=== PATIENT | male | born 1990 | race Caucasian/White ===

== ENCOUNTER 2024-01-11 03:56 | Inpatient (IN) | payer MEDICARE, SELFPAY ==
[2024-01-10 23:37] VITALS: BP 147/81
--- NOTE | 2024-01-11 01:45 | EDRN ---
Addendum entered by London Martinez, CHARLES 01/11/24 01:48:
right forearm
Addendum entered by London Martinez, CHARLES 01/11/24 01:48:
right forearm 1
Addendum entered by London Martinez, CHARLES 01/11/24 01:47:
left forearm
Original Note:
left forearm 1
[2024-01-11] MEDS: VANCOCIN 200 IV (02:07)
[2024-01-11 02:08] VITALS: BMI 23.6
[2024-01-11 02:21] LABS: % Basophils 0.4 % (0-2); % Eosinophils 0.5 % (0-6); % Immature Granulocytes 0.3 % (0-0.5); % Monocytes 5.4 % (1.7-9.3); % Neutrophils 70.4 % (42.2-75.2); Absolute Eosinophils 0.1 10^3/uL (0-0.7); Absolute Lymphocytes 2.3 10^3/uL (1.2-3.4); Absolute Monocytes 0.6 10^3/uL (0.1-0.6); Absolute Neutrophils 7.2 10^3/uL (1.4-6.5); Hematocrit 33.3 % (39.0-52.0); Hemoglobin 11.2 g/dL (13.0-18.0); Mean Corp Hgb Conc. 33.6 g/dL (33.0-37.0); Mean Corpuscular Hgb 26.7 pg (27.0-31.0); Mean Corpuscular Volume 79.5 fL (80.0-94.0); Mean Platelet Volume 8.9 fL (7.4-10.4); Nucleated Red Blood Cells % 0 % (-); Platelet Count 453 10^3/uL (130-400); Red Blood Cell Count 4.19 10^6/uL (4.70-6.10); Red Cell Dist. Width 13.8 % (11.5-14.5); White Blood Cell Count 10.2 10^3/uL (4.8-10.8)
--- NOTE | 2024-01-11 02:32 | ED.GENMED ---
History of Present Illness
General
Chief Complaint: Skin Problem
Source: patient
Exam Limitations: none
Time Seen by Provider: 01/11/24 00:21
Travel History
Have you had any contact with someone who has COVID-19?: No
Do you have any symptoms of coronavirus? Fever > 100 degrees, chills, cough, shortness of breath, sore throat, loss of taste or smell, muscle aches, or headache?: No
History of Present Illness
History of Present Illness:
33-year-old male who presents with worsening of bilateral forearm wounds. Patient uses IV opioids and IV cocaine. Patient admits that he does want to get clean but has recently been struggling with use. The patient does plan on going to inpatient
rehab. He states the arms have been swollen but no fevers. He was admitted for 2 weeks and had debridement and MRSA in his blood. He states he did use opiates tonight but snorted them.
Past History
Past History
ED Past Medical History: Asthma, Psychiatric (Bipolar disorder, Substance abuse) and Other (MRSA bacteremia, IV opioid use, IV cocaine use)
ED Past Surgical History: None
Social History
Tobacco: Non-smoker
Alcohol: Occasional
Drug: Narcotics and Other
Personal: Single
Living: with family
Employment: Employed
Family History
Family History: Other (No significant)
Phy Exam
Physical Exam
Physical Exam:
CONSTITUTIONAL Vital signs reviewed, Patient alert and oriented to person, place and time. Well-appearing
HEAD atraumatic, normocephalic.
EYES eyelids normal to inspection, Extraocular muscles intact, Conjunctiva normal, Sclera normal.
NECK normal range of motion, Trachea midline, no jugular venous distention.
RESP no respiratory distress
BACK No obvious deformities
UPPER EXTREMITY large necrotic wounds noted to bilateral forearms. There is exudative changes as well as necrosis as well as surrounding erythema. There is no proximal streaking. There is normal distal cap refill.
LOWER EXTREMITY Gross range of motion normal, Gross motor strength normal
NEURO Speech normal, No focal motor deficits include, Jess coma scale 15, Memory normal, Cranial Nerves intact to screening exam.
SKIN Skin warm, dry, and normal in color.
PSYCHIATRIC Patient oriented to person place and time, Normal affect.
Course
Orders/Labs/Results
Orders:
Orders
01/11/24 01:09
Vancomycin 1 Gram/200 ml [Vancocin] 1 gram in 200 ml IV NOW
01/11/24 01:20
Complete Blood Count/With Diff Urgent
Comprehensive Metabolic Panel Urgent
Lactic Acid Q4H
Comment: CANCEL 2nd LACTIC ACID IF 1st LACTIC ACID IS LESS THAN 2
Blood Culture Q30M
EVELINA Source: Blood/Venous
Specimen Description:
01/11/24 02:05
Blood Culture Q30M
EVELINA Source: Blood/Venous
Specimen Description:
01/11/24 02:45
Urine Drug Abuse Screen Routine
01/11/24 02:48
Admit/Transfer Patient As Directed
Co-Sign Provider:
Level of Care: Inpatient admission
Assign to:: Medical/Surgical
Physician / Group: [email or web address]
Diagnosis: Right forearm chronic necrotic wounds - infected IVDA site
Reason for Hospitalization: Right forearm chronic necrotic wounds - infected IVDA site
Expected length of stay greater than two midnights?: Yes
ELOS- Estimated Length of Stay in days: 7
I certify the patient meets the requirements for IP care: Yes
01/11/24 02:49
Code Status As Directed
Resuscitation Status: Full Code
Abnormal Lab Results
01/11/24
01:20
RBC 4.19 L 10^6/uL
(4.70-6.10)
Hgb 11.2 L g/dL
(13.0-18.0)
Hct 33.3 L %
(39.0-52.0)
MCV 79.5 L fL
(80.0-94.0)
MCH 26.7 L pg
(27.0-31.0)
Plt Count 453 H 10^3/uL
(130-400)
Absolute Neuts (auto) 7.2 H 10^3/uL
(1.4-6.5)
Chloride 97 L mmol/L
(98-107)
Carbon Dioxide 31 H mmol/L
(22-30)
01/11/24 01:20
01/11/24 01:20
Vital Signs
Initial and Last Documented VS:
Initial Vital Signs
Temp Pulse Resp BP Pulse Ox
99.3 F 99 20 147/81 98
01/10/24 23:37 01/10/24 23:37 01/10/24 23:37 01/10/24 23:37 01/10/24 23:37
Last Documented Vital Signs
Temp Pulse Resp BP Pulse Ox
99.3 F 99 20 147/81 98
01/10/24 23:37 01/10/24 23:37 01/10/24 23:37 01/10/24 23:37 01/10/24 23:37
MDM/Problems Addressed
MDM/Problems Addressed:
Gangrene, IV opiate use, cellulitis
*Pulse Oximetry
Patient hypoxic: no
*Critical Care Note
Total Time (30-74mins, 75-104mins- exclusive of procedures): Not Applicable
Data Reviewed
Review of Other/Old Records Reveals: Labs (Prior microbiology from September 2023 showing positive blood cultures for MRSA) and Discharge Summary (Discharge summary reviewed from 2022)
Source: patient
Further Testing Considered But Not Given:
Considered CT but no evidence of necrotic fasciitis clinically
Patient Management
Discussion with other providers: Hospitalist
Escalation/DeEscalation of care consider admission/obs:
Requires IV antibiotics. Likely will require again debridement. Counseled at length on importance of cessation of IV drug abuse and the risk of and permanent illness. Patient is very aware and does report good intentions to go to rehab.
Admit
ED Attending Note
-
Portions of this chart may have been created with voice recognition software.� Occasional wrong word or��sound alike� substitutions may have occurred due to the inherent limitations of voice recognition software.
Discharge Plan
Departure
Patient Disposition: Admit
Date of Disposition: 01/11/24
Time of Disposition: 02:35
Admit to: Med/Surg
Presentation/result/management discussed w/ accepting MD/DO: Hospitalist
Discharge Problem:
Drug abuse, IV, Gangrene, not elsewhere classified, Cellulitis
Interventions
Interventions:
*General Assessment Last Done: 01/10/24 23:37
*Neglect/Abuse Screening Last Done: 01/10/24 23:37
ED- Fall Risk Assessment Last Done: 01/10/24 23:37
*ED COVID-19 Vaccine History Last Done: 01/10/24 23:37
ED-Skin Assessment Last Done: 01/11/24 01:20
[2024-01-11 02:35] LABS: Lactic Acid 0.8 mmol/L (0.7-2.0)
[2024-01-11 02:36] LABS: ALT (SGPT) 15 U/L (0-50); AST (SGOT) 27 U/L (17-59); Albumin 3.9 g/dl (3.5-5.0); Alkaline Phosphatase 88 U/L (38-126); Blood Urea Nitrogen 11 mg/dl (9-20); Calcium 9.7 mg/dl (8.4-10.2); Carbon Dioxide 31 mmol/L (22-30); Chloride 97 mmol/L (98-107); Estimated Creatinine Clearance > 125 ml/min; Glucose 93 mg/dl (70-99); Potassium 4.5 mmol/L (3.5-5.1); Sodium 139 mmol/L (135-145); Total Bilirubin 0.5 mg/dl (0.2-1.3); Total Protein 7.3 g/dl (6.3-8.2); eGFR > 60.00
--- NOTE | 2024-01-11 02:43 | HPS.HSE ---
Addendum entered and electronically signed by Bishnu Piper MD 01/11/24 20:20:
Per DC summary on 11/06/[address] Sandoval
DISCHARGE MEDICATIONS:� Methadone 70 mg PO DAILY Mental
Original Note:
Family Physician
-
Family Physician: Anshu Rose
Chief Complaint
-
persistent right forearm and Lt fore arm wounds
History of Present Illness
33M HX active IVDA, bipolar disorder/PTSD, asthma pw persistent right forearm and Lt fore arm wounds from IV drug use.
Patient has had these wounds for months.
Patient uses IV fentanyl and xylazine and used shortly before being admitted.
Denied alcohol or benzodiazepines or any other drug.
He denied fevers or chills.
Medical History
Past Medical History
Past Medical History: Reports Other (bipolar disorder/PTSD, asthma, IV drug use)
Past Surgical History: Reports Other (abscess drainage)
Social History
Tobacco: Smoker
Drug: IVDA
Family History
Family History: Not pertinent
Allergies / Home Medications
Allergies reflects when Allergies were last updated in [facility].
Home Medications with original date entered in [facility]
Allergy/Medication List:
Allergies
Allergy/AdvReac Type Severity Reaction Status Date / Time
amoxicillin [Amoxicillin] Allergy Hives Verified 01/10/24 23:37
Penicillins Allergy Hives Verified 01/10/24 23:37
Home Medications
Methadone 70 mg PO DAILY Mental Health/Anxiety 10/23/23
Review of Systems
-
Constitutional: Reports No Symptoms
EENT: Reports No Symptoms
Respiratory: Reports No Symptoms
Cardiac: Reports No Symptoms
Abdomen/GI: Reports No Symptoms
: Reports No Symptoms
Musculoskeletal: Reports No Symptoms
Skin: Reports See HPI
Neurological: Reports No Symptoms
Endocrine: Reports No Symptoms
Hematologic/Lymphatic: Reports No Symptoms
Psych: Reports No Symptoms
Physical Exam
Vital Signs
Vital Signs
Temp Pulse Resp BP Pulse Ox
99.3 F 99 20 147/81 98
01/10/24 23:37 01/10/24 23:37 01/10/24 23:37 01/10/24 23:37 01/10/24 23:37
Physical Exam
General: Other (see below )
Laboratory Results
-
01/11/24 01:20
01/11/24 01:20
Laboratory Results
Lactic Acid 0.8 mmol/L (0.7-2.0) 01/11/24 01:20
Total Bilirubin 0.5 mg/dl (0.2-1.3) 01/11/24 01:20
AST 27 U/L (17-59) 01/11/24 01:20
ALT 15 U/L (0-50) 01/11/24 01:20
Alkaline Phosphatase 88 U/L (38-126) 01/11/24 01:20
Data Reviewed
-
Lab Data: Labs Reviewed by me
Old Records: Reviewed
Impression/Plan
-
Reviewed VS: T 99.3 HR 99 otherwise unremarkable
PE
Gen: NAD
HEENT: No conjunctival hemorrhage and anicteric sclera
Neck: supple
Lungs: CTA
Cor: RRR S1 S2
Abdomen: Soft, Non Tender, Non Distended
FINANCIAL WRITER: AAO3
MS: Necrotic draining wounds right forearm, erythematous and red. Chronic wounds left forearm
Psych:
Data
WCC 10.2
Hgb 11.2
Plt 453
nl Cr
LA 0.8
BCx sent
Last hospitalist admission: 10/23/23 - 11/06/23
1.MRSA bacteremia
2 Infected acute on chr UEx IVDA site infection
3. Current IVDA
ASSESSMENT & PLAN
B/L forearm chronic necrotic wounds - infected IVDA site
HX MRSA bacteremia
- BCx
- IV Vancomycin
- GS consult to eval for wound debridement
- ID consult
HX IV fentanyl/xylazine use
Patient uses IV fentanyl and xylazine and used shortly before being admitted
NEG HIV and NEG Hep C per last admission record
- pending UDS
- cont. chr methadone maintenance
- Psych consult
Bipolar disorder/PTSD
- await Psych eval
HX Asthma
DVT Px: LMWH
Full code
IP MS
[2024-01-11 04:25] VITALS: BP 137/84
--- NOTE | 2024-01-11 04:45 | PTCARENOTE ---
Pt admitted to room 2134 from ED at 0445, aaox3, pleasant and cooperative. Stating that used drugs 30 min before admitted in ED, COWS initiated and scored 2. Pt has no withdraw symptoms at this time, urine sample unable to be collected, fluids given
to pt. Wounds to upper extremities cleaned and dsg applied, offers no complaints of pain.
[2024-01-11] MEDS: VANCOCIN 150 IV ×2 (05:27→21:23)
[2024-01-11 05:55] VITALS: BMI 23.1
[2024-01-11 06:00] VITALS: BMI 23.1
[2024-01-11 07:53] VITALS: BP 145/90
[2024-01-11 08:24] LABS: Amphetamines Negative (Negative); Barbiturates Negative (Negative); Benzodiazepines Negative (Negative); Buprenorphine Negative (Negative); Methadone Negative (Negative); Methamphetamines Negative (Negative)
[2024-01-11 08:25] LABS: Cocaine Positive (Negative); Marijuana Negative (Negative); Opiates Negative (Negative); Phencyclidine Negative (Negative); Tricyclic Antidepressants Negative (Negative)
[2024-01-11 09:11] LABS: Fentanyl, Urine Positive (Negative)
--- NOTE | 2024-01-11 10:18 | W.PN.HOSP.TC ---
Today's Communication/Plan
-
Start clonidine and Zanaflex
We need verification from methadone clinic prior to deciding about methadone
Assessment / Plan
Assessment / Plan
33-year-old pleasant man admitted because of wounds on his arms from injecting drugs. He also wants to quit drugs and wants to go to rehab. Patient started using drugs when he was 23
On examination pleasant
Awake alert oriented
Not in acute distress at this point
Cardiovascular system S1-S2 appreciated-no murmur
Chest clear to auscultation
Abdomen soft and nontender
Necrotic appearing wounds on the posterior aspect of the forearm bilaterally with mild discharge
No joint pain or limited movements of the elbow
Pulses felt
Skin no other places has any wounds like this.
# Active IV drug abuse
Necrotic forearm wounds
Patient states that what he gets as dope nowadays is Fentanyl and Xylazine
He has been injecting that consistently to the posterior forearm area only.
He wants the wounds to get better and also wants to quit drugs
Wound care
Continue IV antibiotics-ID evaluation requested
Zanaflex and clonidine ordered
Patient is already on methadone continue after verifying the dose (UDS Negative for methadone)-Pt says he hasn't been there in a week.
He does not want to take Suboxone.
Spoke to pharmacy who is waiting for verification of dose , awaiting call from clinic.
Case management consult for drug rehab
# Bipolar disease/PTSD
History of childhood mental trauma
# Asthma-Stable
# Smoker-cessation counseling
# DVT prophylaxis-Lovenox
# Full code
Discussed with nursing
D/W Pharmacy
Counselled to stop.
Pharmacy is awaiting callback from patient's methadone clinic to verify the last dose. Also need to find out if they will take him back before we decide what medicine to start him on.
Time spent 52 min
Anticipated Discharge: > 48 hours
Subjective/Interval History
-
Date of Service: January 11, 2024
Objective Data
-
Labs:
Laboratory Results
01/11/24 01/11/24
01:20 06:00
WBC 10.2 Pending
Hgb 11.2 L Pending
Hct 33.3 L Pending
Plt Count 453 H Pending
Sodium 139 Pending
Potassium 4.5 Pending
Chloride 97 L Pending
Carbon Dioxide 31 H Pending
BUN 11 Pending
Creatinine 0.8 Pending
Glucose 93 Pending
Calcium 9.7 Pending
Total Bilirubin 0.5 Pending
AST 27 Pending
ALT 15 Pending
Alkaline Phosphatase 88 Pending
Vital Signs:
Vital Signs
Temp Pulse Resp BP Pulse Ox
98.8 F 80 15 145/90 100
01/11/24 07:53 01/11/24 07:53 01/11/24 07:53 01/11/24 07:53 01/11/24 07:53
I&O
01/10/24 01/11/24 01/12/24
06:59 06:59 06:59
Intake Total 630 / 630
Balance 630 / 630
--- NOTE | 2024-01-11 10:53 | PHA.VAN.IN ---
Addendum entered and electronically signed by Maria Fernanda Guerrero RPH 01/12/24 08:34:
Note: Vanc 1250mg Q12H provided trough of 9 and AUC 442. Regimen was adjusted to Vanc 750mg Q8H day trough was 9. Vanc 750mg Q8H predicted AUC 422-452, Peak 25.9-26.2, Trough 11.1-12.9 based on patient-specific PK from level calculations with Vanc
1000mg Q8H and Vanc 1250mg Q12H. No levels were obtained on regimen of Vanc 750mg Q8H during prior admission.
Original Note:
Assessment
- Assessment
Renal Function: Appears similar to baseline (0.8 11/02/23)
Maximum Temperature: 99.3 01/10/24 at 23:37
Minimum Temperature: 98.8 01/11/24 at 07:53
Historical Micro: History of MRSA infection (MRSA bacteremia w/MRSA R arm wound treated at x 15 days on IV vanco)
- Previous Dosing Experience
Previous Regimen: Vancomycin 750mg IV Q8hrs
Date of Regimen: 10/29/2023
Provided Trough of: 9
Provided AUC of: 442
Patient's SCR is: Similar to previous dosing experience
Patient's weight is: Decreased compared to previous dosing experience (previous weight 74kg)
AUC Dosing Plan
- Dosing Variables
Dosing Weight (kg): 70.8kg
Dosing CrCl (ml/min): 125
Vd coefficient (L/kg): 0.7
- Empiric Dosing
Initial / Loading Dose: Vancomycin 1750mg given as split load today 1gm-02:07, 750mg-05:27
Maintenance Regimen: Vancomycin 750mg IV Q8hrs start at 22:00 tonight
Estimated AUC (mcg*h/mL): 443
Estimated Peak (mcg*h/mL): 26
Estimated Trough (mcg/ml): 12
Estimated Half Life (H): 6
KINETICS NOTE FROM PREVIOUS DOSING EXPERIENCE:
ELYS WU Male : 1990 [facility]# [id number]
10/29/23 08:14 - Pharmacy Follow Up Vanco by Maria Fernanda Guerrero Viet
Acct Num: [id number] : 1990 Patient Age: 33
Vancomycin Assessment / Plan
- Assessment
Renal Function: Stable
- Assessment - Therapeutic Drug Monitoring
Extrapolated Cmax (mcg/mL): 32
Peak level was drawn: Appropriately (drawn ~2.7H after end of previous infusion)
Extrapolated Cmin (mcg/mL): 9
Trough Drawn: Appropriately
Levels were drawn: At steady state (levels drawn after 3rd dose of new regimen)
Calculated AUC (mcg*h/mL): 442
Calculated ke: 0.1208
Calculated half life (H): 5.7
Calculated Vd (L): 47 (~0.6 L/kg)
Calculated Vanc CL (ml/min): 94
Patient has slightly increased clearance from previous patient-specific PK on 10/27
- Dosing Plan
Adjust Regimen to: Vanc 750mg Q8H
New Regimen Predicts: AUC (422-452), Peak (25.9-26.2), Trough (11.1-12.9)
Dosing Comments: utilized patient-specific PK from today and 10/27 for predictions
AUC appropriate on current regimen but troughs < 10 may be associated with increased development of resistance; therefore, will adjust back to Q8H regimen
- Monitoring
No levels ordered at this time: Will order levels according to vancomycin dosing protocol
Pharmacokinetics Vancomycin I
- -
Patient Age: 33
Patient Sex: Male
Vancomycin Day #: 1
Indication: Skin And Soft Tissue
Requesting Provider: Dr Piper
Pertinent Antimicrobial Allergies:
Penicillin-hives, Amoxicillin-hives
Height / Weight:
Height 5 ft 9 in
Actual Weight 70.789 kg
IBW in k.7
Pertinent Past Medical History: IVDA ongoing, previous MRSA bacteremia/R arm MRSA wound 10/23/2023
- Vital Signs / Lab Results
Temp Pulse Resp BP Pulse Ox
98.8 F 80 15 145/90 100
01/11/24 07:53 01/11/24 07:53 01/11/24 07:53 01/11/24 07:53 01/11/24 07:53
Lab Results - Hematology
01/11/24
01:20
WBC 10.2
Lab Results - Chemistry
01/11/24
01:20
BUN 11
Creatinine 0.8
Estimated Creat Clear > 125
Albumin 3.9
01/11/24 01/11/24
01:20 05:15
Lactic Acid 0.8 Cancelled
[2024-01-11 11:24] LABS: % Basophils 0.5 % (0-2); % Eosinophils 2.1 % (0-6); % Immature Granulocytes 0.3 % (0-0.5); % Lymphocytes 23.9 % (20.5-51.1); % Neutrophils 64.2 % (42.2-75.2); Absolute Eosinophils 0.2 10^3/uL (0-0.7); Absolute Lymphocytes 2.1 10^3/uL (1.2-3.4); Absolute Monocytes 0.8 10^3/uL (0.1-0.6); Absolute Neutrophils 5.7 10^3/uL (1.4-6.5); Hematocrit 34.1 % (39.0-52.0); Hemoglobin 11.3 g/dL (13.0-18.0); Mean Corp Hgb Conc. 33.1 g/dL (33.0-37.0); Mean Corpuscular Hgb 26.8 pg (27.0-31.0); Mean Corpuscular Volume 80.8 fL (80.0-94.0); Mean Platelet Volume 8.8 fL (7.4-10.4); Nucleated Red Blood Cells % 0 % (-); Platelet Count 462 10^3/uL (130-400); Red Blood Cell Count 4.22 10^6/uL (4.70-6.10); Red Cell Dist. Width 13.8 % (11.5-14.5); White Blood Cell Count 8.9 10^3/uL (4.8-10.8)
[2024-01-11] MEDS: SENOKOT 8.59999999999999964 MG PO ×2 (11:39→21:24)
[2024-01-11] MEDS: MIRALAX 17 GRAMS PO (11:39)
[2024-01-11] MEDS: COLACE 100 MG PO ×2 (11:39→21:24)
[2024-01-11] MEDS: CATAPRES 0.100000000000000006 MG PO ×2 (11:40→21:23)
[2024-01-11 11:42] LABS: ALT (SGPT) 15 U/L (0-50); AST (SGOT) 30 U/L (17-59); Alkaline Phosphatase 87 U/L (38-126); Blood Urea Nitrogen 9 mg/dl (9-20); Calcium 9.2 mg/dl (8.4-10.2); Carbon Dioxide 28 mmol/L (22-30); Chloride 105 mmol/L (98-107); Estimated Creatinine Clearance > 125 ml/min; Glucose 112 mg/dl (70-99); Potassium 4.2 mmol/L (3.5-5.1); Sodium 139 mmol/L (135-145); Total Bilirubin 0.5 mg/dl (0.2-1.3); Total Protein 7.4 g/dl (6.3-8.2); eGFR > 60.00
[2024-01-11 11:43] LABS: Lactic Acid 0.8 mmol/L (0.7-2.0)
--- NOTE | 2024-01-11 12:02 | CM ---
CM following re: discharge planning.
Reviewed pt's chart, met with pt.
Pt is a 33 year old male, admitted with primary dx of persistent right forearm and Lt forearm wounds.
Pt reports he lives alone in an apartment, single, no children, has supportive parents and a sister. Pt reports he has been abusing substances for the past 10 years, mostly IV fentanyl and cocaine, developed severe wounds on both forearms. Pt stated
he drop out from college because of drugs and losing his relationship with family because of drugs. Pt reports he goes to [facility] methadone clinic in [place]. Pt reports he went to inpatient D&A residential rehab at [facility] last year, was at
[facility] and also went to prolonged inpatient DA& rehab in [place]. Pt expressed his desire to go to inpatient D&A rehab at discharge and he asked vivek meet with [facility] team.
A referral to [facility] made, spoke to CRS Vivek and he will meet with pt most likely today or THIAGO Suarez will meet with his tomorrow.
PCP: Anshu Rose
Pharmacy: [facility].
D/C plan: Inpatient D&A rehab when medically stable. [facility] following.
CM will follow with discharge plan updates as hospitalization progresses
--- NOTE | 2024-01-11 13:09 | CON.MD ---
Addendum entered and electronically signed by Sha Alexis MD 01/11/24 14:52:
Could not get any medication from methadone clinic therefore we will do 20 mg methadone tonight.
Original Note:
Consultation - Medical
-
chart reviewed- both this admission and previous ones
Pt Interviewed- 40 minutes spent
This 33 year old single white male is back in the hospital for antibiotic treatment of cellulitis of arm. Psychiatry consult called [facility] of pt's chronic IV drug abuse.
Pt is pleasant, talkative, presents a cheerful affect despite his present medical problems. He has tried to stop using drugs but then gives in bec 'I like the [place] of it all- I like buying the drugs, and using them, and the gunshots going off
around me when am in the neighborhood where I buy them.' He also recognizes he has a strong level of denial that at some point he might of an unintentional Fentanyl overdose if he keeps using. He knows that Fentanyl is laced into the drugs he
buys. He has lost jobs, lost relationships, and lost friends who from their drug abuse. He says he is ready to go back to inpatient rehab. Currently not displaying any signs of withdrawal.
He denies periods of depression. Also denies any periods of psychosis or elation (other than the effect of the IV drugs he uses). His mom thinks he has bipolar affective disorder - he is not sure that this diagnosis fits.
MSE- Alert, smiling- not in distress; O x 3.
No auditory or visual hallucinations. No suicidal ideation. No homicidal ideation.
Insight fair; judgment poor.
A/P
Dx- - IV drug abuse (heroin, fentanyl)
PTSD acc to pt's history of childhood trauma
Not on psych meds at present- was given Zyprexa 10 mg in the past but when he took it he became very sleepy and couldn't function.
refer to drug rehab when medically clear.
I talked with him at length about finding alternate behaviors in his life to 'replace' the high of drugs- such as sports, which is what he identified.
--- NOTE | 2024-01-11 13:39 | CON.ID ---
Consultation
-
Date/Time Consultation Requested: 01/10/2024 2344
Date/Time Consultation Performed: 01/11/2024 1300
Requesting Provider: Dr. Piper
Performing Provider: Dr. Vidal
Reason for Consultation: Bilateral arm wounds
Chief Complaint / Past History
History of Present Illness
Earl Suarez is a 33-year-old man with a significant past medical history of substance abuse being seen at the request of Dr. Piper in regards to bilateral wounds on the arms. History is obtained from chart review, along with patient
interview. Patient reports IVDA at least for the past 10 years, but notes that current product on the street contains 'tranq', and has been known to cause significant wounds. He notes that he has had wounds on his arms for approximately the last 8
months, and they intermittently improve and worsen based upon his drug use. He admits to being hospitalized here in September, and at that time cultures grew out MRSA. Over the past week or so there has been increasing drainage from the wounds, and
he felt it lewis to come to the emergency room for further care, and to try to get into rehab.
He admits to some intermittent fevers and chills. He reports erythema along his forearms, but nothing extending past his elbows. He reports purulent drainage. He denies any axillary pain or swelling. He denies sharing needles. He does not
recall his last HIV test, but consents to having testing now.
Past History
Past Medical History: Asthma and Other (Substance disorder)
Past Surgical History: Tonsilectomy
Allergy History:
amoxicillin [Amoxicillin] Allergy (Verified 01/10/24 23:37)
Hives
Penicillins Allergy (Verified 01/10/24 23:37)
Hives
Medications Reviewed: Yes
Current Antibiotics:
Vancomycin
Social History
Tobacco: Smoker
Alcohol: Occasional
Drug: IVDA
Personal: Single
Living: With Family
Employment: Employed
Review of Systems
Vital Signs
Temp Pulse Resp BP Pulse Ox
98.8 F 63 15 149/84 100
01/11/24 07:53 01/11/24 11:40 01/11/24 07:53 01/11/24 11:40 01/11/24 07:53
Physical Exam
Physical Exam
Constitutional: No Acute Distress, Comfortable and Non-toxic
Eyes: No Conjunctival Hemorrhage and Sclera Anicteric
Oral: No Thrush and No Ulcers
Cardiovascular: Regular Rate and S1/S2; Negative S3/S4
Pulmonary: Clear; Negative Wheezes, Rales or Rhonchi
Gastrointestinal: Soft, Non Tender, Non Distended and Normal Bowel Sounds
Extremities: Edema and Erythema
Wound: Other (Bilateral forearm wounds noted. No erythema progression past elbow. No axillary adenopathy.)
Neurological: Awake and Alert
Psychological: Calm
Lab / Diagnostic Study Results
01/11/24 11:10
01/11/24 11:10
Abs Immat Gran (auto) 0.0 10^3/uL (0-0.05) 01/11/24 11:10
Absolute Neuts (auto) 5.7 10^3/uL (1.4-6.5) 01/11/24 11:10
Absolute Lymphs (auto) 2.1 10^3/uL (1.2-3.4) 01/11/24 11:10
Absolute Monos (auto) 0.8 10^3/uL (0.1-0.6) H 01/11/24 11:10
Absolute Basos (auto) 0.0 10^3/uL (0-0.2) 01/11/24 11:10
Immature Gran % 0.3 % (0-0.5) 01/11/24 11:10
Neutrophils % 64.2 % (42.2-75.2) 01/11/24 11:10
Lymphocytes % 23.9 % (20.5-51.1) 01/11/24 11:10
Monocytes % 9.0 % (1.7-9.3) 01/11/24 11:10
Eosinophils % 2.1 % (0-6) 01/11/24 11:10
Basophils % 0.5 % (0-2) 01/11/24 11:10
Lactic Acid Cancelled 01/11/24 16:46
Microbiology Results
Micro:
01/11/24 02:05 Blood Culture - Pending
Blood/Venous
01/11/24 01:20 Blood Culture - Pending
Blood/Venous
Assessment / Plan
Bilateral upper extremity wounds secondary to IVDA.
Hx MRSA
Recommendations:
Continue with vancomycin for the present. Local care to the wounds.
Await pending cultures.
Monitor white count and temperature curve.
Await acceptance at drug rehab.
[2024-01-11 15:45] VITALS: BP 153/82
[2024-01-11] MEDS: DOLOPHINE 20 MG PO (15:50)
[2024-01-11] MEDS: LOVENOX 40 MG SC (17:44)
[2024-01-11] MEDS: ZANAFLEX 2 MG PO (21:23)
[2024-01-11] MEDS: TYLENOL 650 MG PO (21:38)
[2024-01-11 23:30] VITALS: BP 142/89
[2024-01-12] MEDS: ZANAFLEX 2 MG PO ×2 (04:42→08:10)
--- NOTE | 2024-01-12 05:45 | PTCARENOTE ---
Patient c/o nausea from post nasal drip and asking anything he can get for nausea. Did give ordered xanaflex just now ( c/o restlessness). PRETTY Melchor made aware. New order for Compazine IV. when this nurse went to give the med, patient is
sleeping. will check again later.
[2024-01-12] MEDS: VANCOCIN 150 IV ×3 (06:59→21:36)
[2024-01-12 07:08] VITALS: BP 119/83
[2024-01-12] MEDS: MIRALAX 17 GRAMS PO (07:54)
[2024-01-12] MEDS: CATAPRES 0.100000000000000006 MG PO ×2 (07:56→21:35)
[2024-01-12] MEDS: SENOKOT 8.59999999999999964 MG PO ×2 (07:56→21:35)
[2024-01-12] MEDS: COLACE 100 MG PO ×2 (07:56→21:35)
[2024-01-12] MEDS: COMPAZINE 10 MG IV ×2 (08:21→17:46)
--- NOTE | 2024-01-12 08:37 | PHA.VAN.FU ---
Vancomycin Assessment / Plan
- Assessment
Renal Function: Stable
WBC's are: WNL
In the past 24 hrs, patient has been: Afebrile
- Dosing Plan
Continue: Vanc 750mg Q8H
- Monitoring Plan
No level(s) ordered at this time: consider levels following 2/20 PM dose to give time for accumulation
- Follow Up
Pharmacy will continue to follow.
Vancomycin Follow UP
- -
Patient Age: 33
Patient Sex: Male
Vancomycin Day #: 2
Indication: Skin And Soft Tissue
Requesting Provider: Dr Piper
Pertinent Antimicrobial Allergies:
Penicillin-hives
Amoxicillin-hives
Height / Weight:
Height 5 ft 9 in
Actual Weight 70.789 kg
IBW in k.7
Pertinent Past Medical History: IV ALINA
- Vital Signs / Lab Results
Temp Pulse Resp BP Pulse Ox
97.6 F 111 16 119/83 100
01/12/24 07:08 01/12/24 07:56 01/12/24 07:08 01/12/24 07:56 01/12/24 07:08
Lab Results - Hematology
01/11/24 01/11/24
01:20 11:10
WBC 10.2 8.9
Lab Results - Chemistry
01/11/24 01/11/24
01:20 11:10
BUN 11 9
Creatinine 0.8 0.8
Estimated Creat Clear > 125 > 125
Albumin 3.9 4.0
01/11/24 01/11/24 01/11/24
01:20 04:46 05:15
Lactic Acid 0.8 Cancelled Cancelled
01/11/24 01/11/24 01/11/24
11:10 12:46 16:46
Lactic Acid 0.8 Cancelled Cancelled
Microbiology Results
01/11/24 02:05 Blood Culture - Preliminary
Blood/Venous No Growth in 24 hours- Final report to follow
01/11/24 01:20 Blood Culture - Preliminary
Blood/Venous No Growth in 24 hours- Final report to follow
--- NOTE | 2024-01-12 09:15 | W.PN.HOSP.TC ---
Addendum entered and electronically signed by Arnold Sandoval MD 01/12/24 17:06:
Patient seen and examined
Discussed with resident
Discussed with wound care per
Discussed with surgery.
Impression/plan:
Bilateral upper extremity/arm cellulitis with purulence/IVDA.
History of MRSA.
Consult surgery for possible debridement.
Continue vancomycin/cefepime.
IVDA.
Continue methadone. Confirm dose with pharmacy.
Patient reports using fentanyl with xylazine. Clonidine and Zanaflex added
Original Note:
Today's Communication/Plan
-
Continue with vancomycin and Zanaflex giving ongoing purulence.
Continue with local care to the wounds.
N.p.o. pending superficial surgical debridement in the OR tomorrow
Monitor white count and temperature curve.
Await acceptance at drug rehab.
Assessment / Plan
Assessment / Plan
Impression
Presentation with bilateral necrotic forearm wounds
IV drug abuse
Conditions prior to admission
Bipolar disease/PTSD
History of childhood mental trauma
Asthma-Stable
Smoker-cessation counseling
Hx of MRSA
Plan
Presentation with bilateral necrotic forearm wounds
-IV drug abuse with suspected fentanyl/xylazine necrotic ulcer on posterior aspect of bilateral forearms with mild discharge.
-Normal bilateral pulses.
-Wound care.
-Cultures pending.
-Continue vancomycin and Maxipime.
-Monitor white count and temperature.
-Surgical consult pending.
-N.p.o. pending forearm debridement in OR tomorrow.
-Case management consult for drug rehab.
IV drug abuse
-Psych evaluation appreciated.
-ID evaluation appreciated.
-Continue Zanaflex and clonidine.
-Consented to HIV test.
-Hep C antibodies screening
-Continue vancomycin.
-Patient on methadone, pharmacy waiting on methadone clinic to confirm dose.
Bipolar disease/PTSD
-History of childhood mental trauma
Asthma-Stable
Smoker
-cessation counseling
DVT prophylaxis
-Lovenox
Anticipated Discharge: 24 - 48 hours
Subjective/Interval History
-
Date of Service: January 12, 2024
Patient is a 33-year-old male with past medical history of opioid abuse, chronic PTSD, and bipolar disorder who was admitted yesterday with worsening bilateral forearm wounds from injecting drugs. Patient was recently admitted 2 weeks ago with
wound debridement and blood culture with MRSA. Patient started using drugs when he was 23 years old. He uses IV opioids and IV cocaine and admits that he wants to quit but has been struggling with pain clean. Patient understands the implication of
injection of 'tranq' which has been known to cause significant wounds. Patient stated that he has had wounds for more than 8 months which intermittently improves and worsens due to his drug use. He notes increasing drainage from his wound over the
past week and decided to come to the emergency room for further evaluation. He denies fever and chills, abdominal pain, chest pain, and shortness of breath, or joint pain. Patient stated that he is ready to go to rehab. He does not know his HIV
status and consents to testing. Patient is already on methadone but does not want to take Suboxone.
Objective Data
-
Vital Signs:
Vital Signs
Temp Pulse Resp BP Pulse Ox
97.6 F 111 16 119/83 100
01/12/24 07:08 01/12/24 07:56 01/12/24 07:08 01/12/24 07:56 01/12/24 07:08
I&O
01/11/24 01/12/24 01/13/24
06:59 06:59 06:59
Intake Total 630 / 630 1140 / 1140
Output Total 300 / 300
Balance 630 / 630 840 / 840
Review of Systems
-
All other systems: Not reviewed unless documented
Constitutional: Reports No Symptoms
EENT: Reports No Symptoms Reported
Respiratory: Reports No Symptoms
Cardiac: Reports No Symptoms
Abdomen/GI: Reports Abdominal Pain
Genitourinary: Reports No Symptoms
Musculoskeletal: Reports No Symptoms
Skin: Reports Sores
Neuro: Reports No Symptoms
Endocrine: Reports No Symptoms
Physical Exam
-
General: Well Developed and No Apparent Distress
HEENT: Normocephalic, Atraumatic and Anicteric
Respiratory: Clear to Auscultation and Non Labored Respirations
Cardiac: S1/S2; Negative Murmur
GI: Soft, Nontender, Nondistended, Normal Bowel Sounds and No Hepatosplenomegaly
Genito-urinary: No Costovertebral Tender
Musculoskeletal: No Clubbing, No Cyanosis and No Edema
Skin: Warm, Dry and Ulcers
Neuro: Awake, Oriented and AO x 3
Psych: Calm and Intact Judgement/Insight (Poor judgment/insight)
Data Reviewed
-
Labs: Labs Reviewed by me and Discussed with Physician
Old Records: Reviewed
[2024-01-12] MEDS: DOLOPHINE 70 MG PO (09:16)
--- NOTE | 2024-01-12 09:20 | W.PN.ID1 ---
Date of Service
Date of Service: January 12, 2024
Today's Communication
Continue antibiotics.
Assessment / Plan
Bilateral upper extremity wounds secondary to IVDA.
Hx MRSA
Recommendations:
Continue with vancomycin for the present. Giving ongoing purulence will add cefepime.
Continue with local care to the wounds. Await further input from Wound Care Nurse. Patient may need addition of Dakin's solution.
May also need superficial surgical debridement of the area.
Await pending cultures.
Monitor white count and temperature curve.
Await acceptance at drug rehab.
����������������������������������������������������������
Chief Complaint
-: Other (iatrogenic B/L UE SSTI 2* IVDA)
Subjective / Review of Systems
Review of Systems: No Fever and No Chills
Vital Signs / Physical Exam
Vital Signs
Vital Signs
Temp Pulse Resp BP Pulse Ox
97.6 F 111 16 119/83 100
01/12/24 07:08 01/12/24 07:56 01/12/24 07:08 01/12/24 07:56 01/12/24 07:08
Physical Exam
Constitutional: No Acute Distress, Comfortable and Non-toxic
Eyes: Sclera Anicteric
Cardiovascular: S1/S2; Negative S3/S4
Pulmonary: Non Labored
Gastrointestinal: Soft
Wound: Other (B/L forearms with dried dark crusts and purulence. Mild malodor.)
Neurological: Awake and Alert
Psychological: Calm
Objective Data
Lab Data
Lab Results
01/11/24 11:10
01/11/24 11:10
Estimated Creat Clear > 125 ml/min 01/11/24 11:10
Lactic Acid Cancelled 01/11/24 16:46
Total Bilirubin 0.5 mg/dl (0.2-1.3) 01/11/24 11:10
AST 30 U/L (17-59) 01/11/24 11:10
ALT 15 U/L (0-50) 01/11/24 11:10
Alkaline Phosphatase 87 U/L (38-126) 01/11/24 11:10
Most recent labs reviewed.
Micro Results:
01/11/24 02:05 Blood Culture - Preliminary
Blood/Venous No Growth in 24 hours- Final report to follow
01/11/24 01:20 Blood Culture - Preliminary
Blood/Venous No Growth in 24 hours- Final report to follow
[2024-01-12] MEDS: MAXIPIME 2000 MG IV ×2 (10:36→21:35)
[2024-01-12] MEDS: STERILE WATER FOR INJECTION 10 ML IV ×2 (10:37→21:36)
--- NOTE | 2024-01-12 10:41 | CM ---
Reviewed the chart notes. Spoke with Daniela via telephone from [facility]. Per Massiel, has attempted multiple times calling the patient's room, no answer. LEXI provided Daniela with patient's cell number. She will reach out this morning. LEXI continues
to be available to patient/family and is monitoring medical plan for needs at discharge.
Plan: Discharge plans will depend on the patient's progress.
--- NOTE | 2024-01-12 11:43 | WOUNDNOTE ---
L FOREARM (ANTERIOR LATERAL)
--- NOTE | 2024-01-12 11:47 | WOUNDNOTE ---
R ARM (LATERAL POSTERIOR)
--- NOTE | 2024-01-12 12:00 | WOUNDNOTE ---
[facility] RN note: Patient admitted with bilateral chronic arm wound with necrotic tissue/infection. 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
See H&P for complete history.
PMH: IVDA, bipolar disorder, PTSD, asthma, chronic arm wound (about months) from IVDA, 10/2023 I+D of arm wounds.
Wound Location and type/assessment: Patient admitted with: Bilateral lateral posterior forearm wounds r/t IVDA (IV Fentanyl and IV Xylazine) full thickness to subcutaneous layer or deeper, pink with black necrotic tissue and local erythema. Skin
firm within wound/affected area. Arm edema less as per patient. +Palpable radial pulses bilateral.
Appetite: fair.
Pressure redistribution devices in place: [employer]. Patient is mobile.
Plan: Dressings change on arm. Discussed patient with Dr. Sandoval who approved local wound care and he will consider surgeon consult to evaluate for debridement. ID following. Discussed with CHARLES Hutchins.
Updated care plan and will follow as needed.
Recommend follow up at wound care center upon discharge.
--- NOTE | 2024-01-12 15:34 | CON.GS ---
Addendum entered and electronically signed by Agapito Solis MD 01/12/24 16:12:
I saw and examined the patient independently.
The Corrective Therapist's note was reviewed and I agree with the note, assessment and plan except where noted below.
Comment: This is a 33-year-old male with a history of IV drug abuse and subcutaneous injection with xylazine and fentanyl. He was seen and treated here in October 2023 and was ultimately doing well but recently returned to subcutaneous injections
leticia Flanagan presents with bilateral necrotic forearm wounds. Necrotic wounds noted on both sides. There is some swelling on the left but no obvious discharge. There is some pus noted on the right forearm.
Will plan for OR for debridement of his bilateral upper extremity wounds.
Unfortunately patient ate this afternoon, will n.p.o. at midnight. Plan for surgery tomorrow.
Continue IV antibiotics and current local wound care.
Surgery will continue to follow.
Original Note:
Medical History
-
Chief Complaint: wounds to arm
History of Present Illness:
This is a 33 yo right hand dominant male with a history of IVDA with recent xylazine/fentanyl use who is known to our service from prior wound debridements of the arms in October of 2023 with wound cultures growing MRSA at that time. Unfortunately,
after discharge, he returned to using IV drugs and wounds redeveloped to both forearms at injection sites. He is unsure if all the needles he used have been clean. There are bilateral necrotic wounds to both forearms with surrounding erythema and
edema to the left forearm and purulence noted to the right forearm. He denies fevers.
Past Medical History
Past Medical History: Psychiatric (ptsd)
Past Surgical History: Other (BL forearm skin debridement 10/24 & 10/26/2023)
Social History
Tobacco: Smoker
Drug: IVDA
Family History
Family History: Reviewed & Not Pertinent
Allergies / Home Medications
Allergy/AdvReac Type Severity Reaction Status Date / Time
amoxicillin [Amoxicillin] Allergy Hives Verified 01/10/24 23:37
Penicillins Allergy Hives Verified 01/10/24 23:37
Medication Instructions Recorded Confirmed Type
Methadone 70 mg PO DAILY Mental 10/23/23 10/24/23 History
Health/Anxiety
Review of Systems
-
History Source: Patient
All other systems: Negative unless noted
A 10 point review of systems was completed, and was negative except as per HPI.
Physical Exam
Vital Signs
Temp Pulse Resp BP Pulse Ox
97.6 F 111 16 119/83 100
01/12/24 07:08 01/12/24 07:56 01/12/24 07:08 01/12/24 07:56 01/12/24 07:08
01/11/24 01/12/24 01/13/24
06:59 06:59 06:59
Actual Weight 70.789 kg
Body Mass Index (BMI) 23.1
Lab Results
01/11/24 11:10
01/11/24 11:10
WBC 8.9 10^3/uL (4.8-10.8) 01/11/24 11:10
Hgb 11.3 g/dL (13.0-18.0) L 01/11/24 11:10
Hct 34.1 % (39.0-52.0) L 01/11/24 11:10
Plt Count 462 10^3/uL (130-400) H 01/11/24 11:10
Abs Immat Gran (auto) 0.0 10^3/uL (0-0.05) 01/11/24 11:10
Neutrophils % 64.2 % (42.2-75.2) 01/11/24 11:10
Physical Exam
General: Well Developed and No Apparent Distress
HEENT: Normocephalic and Moist Mucous Membranes
Respiratory: Non Labored Respirations
GI: Soft and Non Distended
Skin: Warm and Other (BL dorsum of forearms with multiple necrotic/denuded lesions. Erythema and edema to the left forearm and purulent drainage from the right forearm)
Neuro: Awake, Alert and AO x 3
Psych: Calm
Data Reviewed
-
Labs: Labs Reviewed by me, Discussed with Physician and Discussed with Patient
Old Records: Reviewed
Assessment / Plan
-
Assessment:
33 yo male with h/o IVDA with recent xylazine/fentanyl use who is known to our service from prior wound debridements of the arms in October of 2023 with MRSA infection at that time, presenting with recurrent wounds to both forarms and cellulitis.
AFVSS, blood cultures negative. No leukocytosis. There is purulent exudate to the RUE and erythema to the LUE.
Plan:
NPO after MN for BL forearm debridement in the OR tomorrow
Continue local wound care
IV abx as per ID
Medical management as per primary team
[2024-01-12 15:44] VITALS: BP 129/79
[2024-01-12] MEDS: LOVENOX 40 MG SC (17:40)
[2024-01-12 19:10] LABS: Hepatitis C Antibody Negative (Negative)
[2024-01-12 23:35] VITALS: BP 133/94
[2024-01-13] VITALS (11 sets, daily range): BP systolic 106–151; BP diastolic 75–94
[2024-01-13 05:42] LABS: % Basophils 0.5 % (0-2); % Eosinophils 0.7 % (0-6); % Immature Granulocytes 0.3 % (0-0.5); % Lymphocytes 21.7 % (20.5-51.1); % Monocytes 7.3 % (1.7-9.3); % Neutrophils 69.5 % (42.2-75.2); Absolute Basophils 0.1 10^3/uL (0-0.2); Absolute Eosinophils 0.1 10^3/uL (0-0.7); Absolute Lymphocytes 2.4 10^3/uL (1.2-3.4); Absolute Monocytes 0.8 10^3/uL (0.1-0.6); Absolute Neutrophils 7.6 10^3/uL (1.4-6.5); Hematocrit 39.4 % (39.0-52.0); Hemoglobin 12.9 g/dL (13.0-18.0); Mean Corp Hgb Conc. 32.7 g/dL (33.0-37.0); Mean Corpuscular Hgb 25.9 pg (27.0-31.0); Mean Platelet Volume 9.6 fL (7.4-10.4); Nucleated Red Blood Cells % 0 % (-); Platelet Count 473 10^3/uL (130-400); Red Blood Cell Count 4.99 10^6/uL (4.70-6.10)
[2024-01-13] MEDS: VANCOCIN 150 IV ×3 (06:14→22:21)
--- NOTE | 2024-01-13 08:16 | W.PN.GS2 ---
Today's Communication / Plan
-
-- OR excisional debridement of bilateral upper extremity wounds
Assessment / Plan
-
Patient is a 33 yo M p/w bilateral upper extremity wounds secondary to IVDA
Mild leukocytosis, afebrile
Plan for excisional debridement of bilateral upper extremity wounds. The procedure itself, as well as the risks, benefits, and alternatives was discussed. Specifically, we discussed the risks of bleeding, infection, injury to surrounding
structures, need for further debridement procedures. All questions answered. Consent signed.
-- OR excisional debridement of bilateral upper extremity wounds
-- NPO, IVF
-- Abx: Vancomycin and Cefepime
Subjective Data
-
Date of Service: January 13, 2024
No complaints. Denies worsening upper extremity pain. No fevers.
Objective Data
-
Intake and Output
01/12/24 01/13/24 01/14/24
06:59 06:59 06:59
Intake Total 1140 / 1140 960 / 960
Output Total 300 / 300
Balance 840 / 840 960 / 960
Intake:
Oral fluids 1140 / 1140 960 / 960
Output:
Urine, Voided 300 / 300
Other:
Number of approximated SMALL 1
amounts of urine
Number of approximated MODERATE 2 2
amounts of urine
Vital Signs
Temp Pulse Resp BP Pulse Ox
98.2 F 84 16 151/94 96
01/13/24 07:33 01/13/24 07:33 01/13/24 07:33 01/13/24 07:33 01/13/24 07:33
Lab Results
01/13/24 04:45
Calcium Cancelled 01/13/24 04:45
Total Bilirubin 0.5 mg/dl (0.2-1.3) 01/11/24 11:10
AST 30 U/L (17-59) 01/11/24 11:10
ALT 15 U/L (0-50) 01/11/24 11:10
Alkaline Phosphatase 87 U/L (38-126) 01/11/24 11:10
Total Protein 7.4 g/dl (6.3-8.2) 01/11/24 11:10
Albumin 4.0 g/dl (3.5-5.0) 01/11/24 11:10
Physical Exam
-
Gen: NAD
Ext: dressings c/d/i, no worsening erythema or drainage
[2024-01-13 08:26] LABS: Blood Urea Nitrogen 15 mg/dl (9-20); Calcium 9.9 mg/dl (8.4-10.2); Carbon Dioxide 25 mmol/L (22-30); Chloride 107 mmol/L (98-107); Estimated Creatinine Clearance > 125 ml/min; Glucose 111 mg/dl (70-99); Potassium 4.5 mmol/L (3.5-5.1); Sodium 141 mmol/L (135-145); eGFR > 60.00
[2024-01-13] MEDS: DOLOPHINE 70 MG PO (08:36)
[2024-01-13] MEDS: CATAPRES 0.100000000000000006 MG PO ×2 (08:37→22:17)
[2024-01-13] MEDS: SENOKOT PO (08:38)
[2024-01-13] MEDS: DAKIN'S SOLUTION 0.125% 1/4 STRENGTH 473 ML TOPICAL (08:38)
[2024-01-13] MEDS: COLACE PO (08:38)
[2024-01-13] MEDS: MIRALAX PO (08:38)
[2024-01-13] MEDS: MAXIPIME 2000 MG IV ×2 (09:16→22:22)
[2024-01-13] MEDS: STERILE WATER FOR INJECTION 10 ML IV ×2 (09:16→22:22)
--- NOTE | 2024-01-13 09:33 | PHA.VAN.FU ---
Vancomycin Assessment / Plan
- Assessment
Renal Function: Stable
WBC's are: Trending Up
In the past 24 hrs, patient has been: Afebrile
Concomitant Antimicrobials: cefepime
- Dosing Plan
Continue: Vanc 750mg Q8H
- Monitoring Plan
Peak Level: 01/14 00:30
Trough Level: 01/14 05:30
Monitoring Comments: levels to be drawn after 7th maintenance dose
- Follow Up
Pharmacy will continue to follow.
Vancomycin Follow UP
- -
Patient Age: 33
Patient Sex: Male
Vancomycin Day #: 3
Indication: Skin And Soft Tissue
Requesting Provider: Dr Piper / [facility]
Pertinent Antimicrobial Allergies:
Penicillin-hives
Amoxicillin-hives
Height / Weight:
Height 5 ft 9 in
Actual Weight 70.789 kg
IBW in k.7
Pertinent Past Medical History: IV ALINA
- Vital Signs / Lab Results
Temp Pulse Resp BP Pulse Ox
98.2 F 84 16 151/94 96
01/13/24 07:33 01/13/24 07:33 01/13/24 07:33 01/13/24 08:37 01/13/24 07:33
Lab Results - Hematology
01/11/24 01/11/24 01/13/24
01:20 11:10 04:45
WBC 10.2 8.9 11.0 H
Lab Results - Chemistry
01/11/24 01/11/24 01/13/24
01:20 11:10 04:45
BUN 11 9 Cancelled
Creatinine 0.8 0.8 Cancelled
Estimated Creat Clear > 125 > 125 Cancelled
Albumin 3.9 4.0
01/13/24
07:12
BUN 15
Creatinine 0.8
Estimated Creat Clear > 125
Albumin
01/11/24 01/11/24 01/11/24
01:20 04:46 05:15
Lactic Acid 0.8 Cancelled Cancelled
01/11/24 01/11/24 01/11/24
11:10 12:46 16:46
Lactic Acid 0.8 Cancelled Cancelled
Microbiology Results
01/11/24 02:05 Blood Culture - Preliminary
Blood/Venous No Growth in 48 hours- Final report to follow
01/11/24 01:20 Blood Culture - Preliminary
Blood/Venous No Growth in 48 hours- Final report to follow
--- NOTE | 2024-01-13 10:06 | PTCARENOTE ---
pt npo for debridement this afternoon. Midline placed in LUE for proper access due to leaking and occlusions in previous peripheral sites and hard to get access. pt is aaox3 pleasant and verbalizes no pain, n/v at this time.
--- NOTE | 2024-01-13 10:17 | W.PN.UPDATE ---
Update Note
Progress Note Update
Patient seen at bedside, chart reviewed, discussed with staff. Earl is anticipated for surgical debridement today. He tells me he still very much wants to go inpatient for drug rehab to help him 'get off of the drugs'. We discuss briefly his
past and he tells me 'I have trauma from my past and maybe I need to work on that'. He is unsure if he was every prescribed any psychotropics. He has seen therapist and psychiatrist when hospitalized in the past but no routine follow up. He is
awake, alert, cooperative and pleasant. Currently NPO. Sleep okay. No issues or concerns otherwise at this time. No withdraw symptoms present. Maintained on Methadone therapy.
Impression/Plan: IV drug abuse (heroin, fentanyl); reported history of PTSD - no psychotropic medications
Refer for drug rehab when medically clear.
Psych will sign off. Call or reconsult with any new or immediate concerns.
.
--- NOTE | 2024-01-13 11:10 | PTCARENOTE ---
pt sent to OR in his bed with his chart for debridement
--- NOTE | 2024-01-13 11:56 | W.PN.HOSP.TC ---
Addendum entered and electronically signed by Arnold Sandoval MD 01/13/24 16:07:
Patient seen and examined
Discussed with resident
Impression/plan
Bilateral upper extremity wounds with necrotizing eschar.
IVDA.
Opiate withdrawal
Status post bilateral arm sharp debridement in OR today.
Continue antibiotics per
Continue methadone/clonidine
Original Note:
Today's Communication/Plan
-
Mild leukocytosis, patient afebrile, monitor white count
Bilateral upper extremity excisional wound debridement today
N.p.o., IVF
Continue vancomycin/cefepime
Continue local wound care
Continue methadone, clonidine and Zanaflex
Assessment / Plan
Assessment / Plan
Impression
Bilateral upper extremity necrotic wound with cellulitis and purulence
Mild leukocytosis, patient afebrile
IV drug abuse
Conditions prior to admission
Bipolar disease/PTSD
History of childhood mental trauma
Asthma-Stable
Smoker-cessation counseling
Hx of MRSA
Plan
Bilateral upper extremity necrotic wound with cellulitis and purulence
-IV drug abuse with suspected fentanyl/xylazine necrotic ulcer on posterior aspect of bilateral forearms with mild discharge.
-Normal bilateral pulses.
-Bilateral upper extremity excisional wound debridement today
-N.p.o., IVF
-Mild leukocytosis, patient afebrile
-Monitor white count and temperature
-Continue vancomycin/cefepime
-Continue local wound care
-Continue methadone 70 mg daily
-Wound care.
-Cultures pending, no growth TD.
-Case management consult for drug rehab.
IV drug abuse
-Hep C antibody negative
-HIV test pending
-Psych following
-ID evaluation appreciated.
-Continue Zanaflex and clonidine..
Bipolar disease/PTSD
-History of childhood mental trauma
Asthma-Stable
Smoker
-cessation counseling
DVT prophylaxis
-Lovenox
Anticipated Discharge: 24 - 48 hours
Subjective/Interval History
-
Date of Service: January 13, 2024
Objective Data
-
Labs:
Laboratory Results
01/13/24 01/13/24
04:45 07:12
WBC 11.0 H
Hgb 12.9 L
Hct 39.4
Plt Count 473 H
Sodium Cancelled 141
Potassium Cancelled 4.5
Chloride Cancelled 107
Carbon Dioxide Cancelled 25
BUN Cancelled 15
Creatinine Cancelled 0.8
Glucose Cancelled 111 H
Calcium Cancelled 9.9
Vital Signs:
Vital Signs
Temp Pulse Resp BP Pulse Ox
98.2 F 84 16 151/94 96
01/13/24 07:33 01/13/24 07:33 01/13/24 07:33 01/13/24 08:37 01/13/24 10:47
I&O
01/12/24 01/13/24 01/14/24
06:59 06:59 06:59
Intake Total 1140 / 1140 960 / 960
Output Total 300 / 300
Balance 840 / 840 960 / 960
Review of Systems
-
History Source: Patient
All other systems: Not reviewed unless documented
Constitutional: Reports No Symptoms
EENT: Reports No Symptoms Reported
Respiratory: Reports No Symptoms
Cardiac: Reports No Symptoms
Abdomen/GI: Reports Abdominal Pain
Genitourinary: Reports No Symptoms
Musculoskeletal: Reports No Symptoms
Skin: Reports Sores
Neuro: Reports No Symptoms
Endocrine: Reports No Symptoms
Physical Exam
-
General: Well Developed and No Apparent Distress
HEENT: Normocephalic, Atraumatic and Anicteric
Respiratory: Clear to Auscultation and Non Labored Respirations
Cardiac: S1/S2; Negative Murmur
GI: Soft, Nontender, Nondistended, Normal Bowel Sounds and No Hepatosplenomegaly
Genito-urinary: No Costovertebral Tender
Musculoskeletal: No Clubbing, No Cyanosis and No Edema
Skin: Warm, Dry and Ulcers
Neuro: Awake, Oriented and AO x 3
Psych: Calm and Intact Judgement/Insight (Poor judgment/insight)
Data Reviewed
-
Labs: Labs Reviewed by me and Discussed with Physician
Old Records: Reviewed
[2024-01-13 12:30] LABS: HIV Combo Negative (Negative)
--- NOTE | 2024-01-13 12:31 | W.IMMPOSTOP ---
Addendum entered and electronically signed by Hector Cantrell MD 01/13/24 12:42:
[facility] [id number]
Original Note:
Surgical Immed Post Op Note
-
Primary Surgeon: Tamia
Assisting Surgeon: None
Pre-op Diagnosis: Necrotizing skin and soft tissue infection of bilateral upper extremity
Post-op Diagnosis: Necrotizing skin and soft tissue infection of bilateral upper extremity
Procedure Performed: Excisional sharp debridement of skin and soft tissue infection of bilateral upper extremity
Anesthesia Type: General LMA
Specimen / Cultures: None
Estimated Blood Loss: 7 cc
Complications: None
Operative Findings:
1. LUE: 15 x 10 cm skin and soft tissue infection, sharp excisional debridement of necrotic skin and subcutaneous tissue, mild purulence underlying, Pulsavac
2. RUE: 12 x 12 cm skin and soft tissue infection, sharp excisional debridement of skin and subcutaneous tissue, mild purulence underlying, Pulsavac
--- NOTE | 2024-01-13 13:44 | CM ---
Reviewed the chart notes and spoke with Daniela with [facility]. Per Daniela, she has left multiple messages on the patient's phone. She is planning on visiting the patient in the room today. Patient had debridement to [facility] today. CM continues to
be available to patient/family and is monitoring medical plan for needs at discharge.
Plan: Discharge plans will depend on the patient's progress.
[2024-01-13] MEDS: LOVENOX 40 MG SC (18:25)
[2024-01-13] MEDS: COLACE 100 MG PO (22:16)
[2024-01-13] MEDS: SENOKOT 8.59999999999999964 MG PO (22:16)
[2024-01-14 04:15] LABS: Vancomycin Peak 18.5 ug/ml (18-26)
--- NOTE | 2024-01-14 05:03 | DOWNTIME ---
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 Downtime documentation of patient's care, including medication administrations, has been reconciled in the electronic record per guidelines. Refer to the
patient's paper chart under the miscellaneous tab to see printed paper medication records and downtime forms.
[2024-01-14 06:06] LABS: Vancomycin Trough 12.3 ug/ml (5-20)
[2024-01-14] MEDS: VANCOCIN 150 IV ×3 (06:28→21:21)
[2024-01-14 07:35] VITALS: BP 141/86
[2024-01-14] MEDS: CATAPRES 0.100000000000000006 MG PO ×2 (07:51→21:20)
[2024-01-14] MEDS: DOLOPHINE 70 MG PO (07:51)
[2024-01-14] MEDS: MIRALAX PO (07:52)
[2024-01-14] MEDS: COLACE PO ×2 (07:52→21:20)
[2024-01-14] MEDS: SENOKOT 8.59999999999999964 MG PO (07:52)
[2024-01-14] MEDS: DAKIN'S SOLUTION 0.125% 1/4 STRENGTH 473 ML TOPICAL (07:52)
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
--- NOTE | 2024-01-14 09:16 | W.PN.ID1 ---
Date of Service
Date of Service: January 14, 2024
Today's Communication
Continue abx.
Assessment / Plan
Bilateral upper extremity wounds secondary to IVDA.
MRSA infection
Recommendations:
Continue with vancomycin and cefepime for the present.
Await acceptance at drug rehab, at which time will narrow abx to an oral regimen.
Monitor Vanco levels closely.
Monitor white count and temperature curve.
Local care to the upper extremity wounds.
����������������������������������������������������������
Chief Complaint
-: Other (iatrogenic B/L UE SSTI 2* IVDA)
Subjective / Review of Systems
Patient seen and examined. Underwent arm debridement yesterday. No current complaints. No difficulty with antibiotics.
Review of Systems: No Fever and No Chills
Vital Signs / Physical Exam
Vital Signs
Vital Signs
Temp Pulse Resp BP Pulse Ox
98.6 F 68 16 141/86 100
01/14/24 07:35 01/14/24 07:35 01/14/24 07:35 01/14/24 07:51 01/14/24 07:35
Physical Exam
Constitutional: No Acute Distress, Comfortable and Non-toxic
Eyes: No Conjunctival Hemorrhage and Sclera Anicteric
Cardiovascular: S1/S2; Negative S3/S4
Pulmonary: Clear and Non Labored
Gastrointestinal: Soft and Non Tender
Wound: Other (Bilateral upper extremities wrapped in Juan Manuel wrap. No erythema extending up the arm or onto the wrist. No strikethrough on bandages.)
Neurological: Awake and Alert
Psychological: Calm
Objective Data
Lab Data
Lab Results
01/13/24 04:45
01/13/24 07:12
Estimated Creat Clear > 125 ml/min 01/13/24 07:12
Lactic Acid Cancelled 01/11/24 16:46
Total Bilirubin 0.5 mg/dl (0.2-1.3) 01/11/24 11:10
AST 30 U/L (17-59) 01/11/24 11:10
ALT 15 U/L (0-50) 01/11/24 11:10
Alkaline Phosphatase 87 U/L (38-126) 01/11/24 11:10
Most recent labs reviewed.
Micro Results:
01/11/24 02:05 Blood Culture - Preliminary
Blood/Venous No Growth in 72 hours- Final report to follow
01/11/24 01:20 Blood Culture - Preliminary
Blood/Venous No Growth in 72 hours- Final report to follow
[2024-01-14] MEDS: STERILE WATER FOR INJECTION 10 ML IV ×2 (09:26→21:20)
[2024-01-14] MEDS: MAXIPIME 2000 MG IV ×2 (09:26→21:20)
--- NOTE | 2024-01-14 10:44 | PHA.VAN.FU ---
Vancomycin Assessment / Plan
- Assessment
Renal Function: Stable
WBC's are: Trending Up
In the past 24 hrs, patient has been: Afebrile
Concomitant Antimicrobials: cefepime
- Assessment - Therapeutic Drug Monitoring
Extrapolated Cmax (mcg/mL): 23
Peak level was drawn: Appropriately (drawn ~2H after end of previous infusion)
Extrapolated Cmin (mcg/mL): 11.2
Trough Drawn: Appropriately
Levels were drawn: At steady state (levels drawn after 7th maintenance dose)
Calculated AUC (mcg*h/mL): 395
Calculated ke: 0.14025
Calculated half life (H): 6.7
Calculated Vd (L): 55
Calculated Vanc CL (ml/min): 95
- Dosing Plan
Continue: Vanc 750mg Q8H
Patient has had levels on Vanc 1000mg Q8H, Vanc 1250mg Q12H and now Vanc 750mg Q8H
1000mg Q8H provided AUC & trough at higher end of therapeutic windows
1250mg Q12H provided therapeutic AUC but trough < 10
750mg Q8H provided AUC at lower end of range and appropriate trough
Equations to calculate AUC may slightly underestimate AUC as well
Continue present dosing at this time
- Monitoring Plan
Level(s) appropriate: Recheck trough at minimum of weekly intervals, Repeat sooner for changes in renal function or clinical status
Next Level Due (Date): ~01/21 - may consider sooner
- Follow Up
Pharmacy will continue to follow.
Vancomycin Follow UP
- -
Patient Age: 33
Patient Sex: Male
Vancomycin Day #: 4
Indication: Skin And Soft Tissue
Requesting Provider: Dr Piper / [facility]
Pertinent Antimicrobial Allergies:
Penicillin-hives
Amoxicillin-hives
Height / Weight:
Height 5 ft 9 in
Actual Weight 70.789 kg
IBW in k.7
Pertinent Past Medical History: IV ALINA
- Vital Signs / Lab Results
Temp Pulse Resp BP Pulse Ox
98.6 F 68 16 141/86 100
01/14/24 07:35 01/14/24 07:35 01/14/24 07:35 01/14/24 07:51 01/14/24 10:14
Lab Results - Hematology
01/11/24 01/13/24
11:10 04:45
WBC 8.9 11.0 H
Lab Results - Chemistry
01/11/24 01/13/24 01/13/24
11:10 04:45 07:12
BUN 9 Cancelled 15
Creatinine 0.8 Cancelled 0.8
Estimated Creat Clear > 125 Cancelled > 125
Albumin 4.0
01/11/24 01/11/24 01/11/24
04:46 11:10 12:46
Lactic Acid Cancelled 0.8 Cancelled
01/11/24
16:46
Lactic Acid Cancelled
Microbiology Results
01/11/24 02:05 Blood Culture - Preliminary
Blood/Venous No Growth in 72 hours- Final report to follow
01/11/24 01:20 Blood Culture - Preliminary
Blood/Venous No Growth in 72 hours- Final report to follow
Therapeutic Drug Monitoring
Vancomycin Peak 18.5 ug/ml (18-26) 01/14/24 01:28
Vancomycin Trough 12.3 ug/ml (5-20) 01/14/24 05:25
--- NOTE | 2024-01-14 12:22 | CM ---
Reviewed the chart notes. Daniela [facility] saw the patient yesterday and will be working on placement at a facility that is equipped to do wound care. CM continues to be available to patient/family and is monitoring medical plan for needs at
discharge.
Plan: Discharge to inpatient rehab once bed found and patient medically stable.
[2024-01-14 14:55] VITALS: BP 148/77
[2024-01-14] MEDS: LOVENOX 40 MG SC (17:14)
[2024-01-14] MEDS: SENOKOT PO (21:20)
[2024-01-14 23:10] VITALS: BP 126/78
[2024-01-15] MEDS: VANCOCIN 150 IV ×3 (05:22→21:48)
[2024-01-15 07:40] VITALS: BP 120/84
--- NOTE | 2024-01-15 08:26 | PTCARENOTE ---
pt aaox3. states no pain. room air. bilat forearm dressings c/d/i. no drainage noted. +1 edema in hands noted. cap refil <3 sec radial pulses strong.
[2024-01-15] MEDS: DOLOPHINE 70 MG PO (09:01)
[2024-01-15] MEDS: COLACE 100 MG PO ×2 (09:03→21:45)
[2024-01-15] MEDS: MIRALAX PO ×2 (09:03→09:18)
[2024-01-15] MEDS: DAKIN'S SOLUTION 0.125% 1/4 STRENGTH TOPICAL ×2 (09:04→13:00)
[2024-01-15] MEDS: SENOKOT 8.59999999999999964 MG PO ×2 (09:04→21:45)
[2024-01-15] MEDS: CATAPRES 0.100000000000000006 MG PO ×2 (09:05→21:45)
--- NOTE | 2024-01-15 09:09 | PHA.VAN.FU ---
Vancomycin Assessment / Plan
- Assessment
Renal Function: No New Labs Today
In the past 24 hrs, patient has been: Afebrile
Concomitant Antimicrobials: cefepime
- Dosing Plan
Continue: Vanc 750mg Q8H
- Monitoring Plan
Level(s) appropriate: Recheck trough at minimum of weekly intervals, Repeat sooner for changes in renal function or clinical status
Next Level Due (Date): ~01/21 - may consider sooner
- Follow Up
Pharmacy will continue to follow.
Vancomycin Follow UP
- -
Patient Age: 33
Patient Sex: Male
Vancomycin Day #: 5
Indication: Skin And Soft Tissue
Requesting Provider: Dr Piper / [facility]
Pertinent Antimicrobial Allergies:
Penicillin-hives
Amoxicillin-hives
Height / Weight:
Height 5 ft 9 in
Actual Weight 70.789 kg
IBW in k.7
Pertinent Past Medical History: IV ALINA
- Vital Signs / Lab Results
Temp Pulse Resp BP Pulse Ox
97.7 F 76 18 120/84 99
01/14/24 23:10 01/15/24 09:05 01/15/24 07:40 01/15/24 09:05 01/15/24 07:40
Lab Results - Hematology
01/13/24
04:45
WBC 11.0 H
Lab Results - Chemistry
01/13/24 01/13/24
04:45 07:12
BUN Cancelled 15
Creatinine Cancelled 0.8
Estimated Creat Clear Cancelled > 125
Microbiology Results
01/11/24 02:05 Blood Culture - Preliminary
Blood/Venous No Growth in 4 days- Final report to follow
01/11/24 01:20 Blood Culture - Preliminary
Blood/Venous No Growth in 4 days- Final report to follow
Therapeutic Drug Monitoring
Vancomycin Peak 18.5 ug/ml (18-26) 01/14/24 01:28
Vancomycin Trough 12.3 ug/ml (5-20) 01/14/24 05:25
--- NOTE | 2024-01-15 09:39 | CM ---
Addendum entered by Lydia Graves 01/15/24 12:46:
Referrals placed to [facility] by [facility].
Addendum entered by Lydia Graves 01/15/24 12:00:
Clinicals faxed to [facility].
Addendum entered by Lydia Graves 01/15/24 11:04:
Spoke with patient, agreeable to [facility] when bed available.
Addendum entered by Lydia Graves 01/15/24 09:41:
TCB from Daniela referrals for [facility] (with wound care and oral anbx) to be placed today.
Original Note:
Left VM for Daniela/[facility] re [facility] placement.
Per MD medically stable for transfer.
Await TCB.
[2024-01-15] MEDS: MAXIPIME 2000 MG IV ×2 (10:41→21:44)
[2024-01-15] MEDS: FLUSH (NSS) 2 FLUSH IV (10:43)
[2024-01-15] MEDS: STERILE WATER FOR INJECTION 10 ML IV ×2 (10:43→21:44)
--- NOTE | 2024-01-15 11:38 | PTCARENOTE ---
Noted patient has allergy to penicillins. Preparing to administer Maxipime to patient. I called pharmacy to clarify medication is safe to administer to patient. Pharmacist verified patient has received multiple doses with no reactions. Gave the okay
to proceed with administering the dose. Medication was given and no reactions observed. Updated primary RN.
--- NOTE | 2024-01-15 12:08 | WOUNDNOTE ---
WOC RN note: Patient s/p OR debridement arm wounds 2 days ago. Arm wounds cleaner laboratory equipment than admission. Arm edema less. Moderate serous yellow drainage from wounds. Dressing changed as ordered. Discussed with CHARLES Edmonds.
--- NOTE | 2024-01-15 12:27 | WOUNDNOTE ---
WOC RN note: Confirmed with Dr. Cantrell to discontinue Dakin's order and to clean wounds with saline or soap and water. Care plan and discharge instructions updated. Discussed wounds with Dr. Vidal as well.
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
--- NOTE | 2024-01-15 13:05 | W.PN.ID1 ---
Date of Service
Date of Service: January 15, 2024
Today's Communication
Continue antibiotics.
Assessment / Plan
Bilateral upper extremity wounds secondary to IVDA.
MRSA infection
Recommendations:
Continue with vancomycin and cefepime for the present.
Await acceptance at drug rehab, at which time will narrow abx to an oral regimen.
Monitor Vanco levels closely.
Continue with local care to the wounds.
At discharge/transfer to rehab facility, can transition to Zyvox 600 mg p.o. twice daily, or if that is cost prohibitive, Bactrim DS, 2 tabs p.o. twice daily.
Would continue antibiotics for an additional 7 days.
����������������������������������������������������������
Chief Complaint
-: Other (iatrogenic B/L UE SSTI 2* IVDA)
Subjective / Review of Systems
Review of Systems: No Fever and No Chills
Vital Signs / Physical Exam
Vital Signs
Vital Signs
Temp Pulse Resp BP Pulse Ox
97.5 F 76 18 120/84 99
01/15/24 09:36 01/15/24 09:05 01/15/24 07:40 01/15/24 09:05 01/15/24 07:40
Physical Exam
Constitutional: No Acute Distress, Well Developed, Comfortable and Non-toxic
Eyes: No Conjunctival Hemorrhage and Sclera Anicteric
Cardiovascular: S1/S2; Negative S3/S4
Pulmonary: Non Labored; Negative Wheezes
Gastrointestinal: Non Distended
Wound: Other (Bilateral arm wounds dressed. Photos reviewed with Wound Care Nurse. Overall improved from admission following debridement.)
Neurological: Awake and Alert
Psychological: Calm
Objective Data
Lab Data
Lab Results
01/13/24 04:45
01/13/24 07:12
Estimated Creat Clear > 125 ml/min 01/13/24 07:12
Lactic Acid Cancelled 01/11/24 16:46
Total Bilirubin 0.5 mg/dl (0.2-1.3) 01/11/24 11:10
AST 30 U/L (17-59) 01/11/24 11:10
ALT 15 U/L (0-50) 01/11/24 11:10
Alkaline Phosphatase 87 U/L (38-126) 01/11/24 11:10
Most recent labs reviewed.
Micro Results:
01/11/24 02:05 Blood Culture - Preliminary
Blood/Venous No Growth in 4 days- Final report to follow
01/11/24 01:20 Blood Culture - Preliminary
Blood/Venous No Growth in 4 days- Final report to follow
Care Review
Plan reviewed with: Physician (Hospitalist Service)
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
[2024-01-15 14:38] VITALS: BP 123/69
--- NOTE | 2024-01-15 15:14 | PTCARENOTE ---
Hygiene offered to patient, patient declines. Clean gown and bed linens changed. Patient brushed teeth independently.
[2024-01-15] MEDS: LOVENOX 40 MG SC (18:01)
[2024-01-15 23:20] VITALS: BP 110/69
[2024-01-16] MEDS: VANCOCIN 150 IV ×3 (06:17→21:57)
[2024-01-16 07:00] VITALS: BP 123/68
[2024-01-16] MEDS: DOLOPHINE 70 MG PO (08:09)
[2024-01-16] MEDS: MIRALAX PO (08:10)
[2024-01-16] MEDS: SENOKOT 8.59999999999999964 MG PO (08:10)
[2024-01-16] MEDS: COLACE 100 MG PO (08:10)
[2024-01-16] MEDS: CATAPRES 0.100000000000000006 MG PO ×2 (08:10→20:03)
--- NOTE | 2024-01-16 08:14 | PHA.VAN.FU ---
Addendum entered and electronically signed by Maria Fernanda Guerrero [facility] 01/16/24 16:21:
BUN & SCR ordered per protocol
Original Note:
Vancomycin Assessment / Plan
- Assessment
Renal Function: No New Labs Today
In the past 24 hrs, patient has been: Afebrile
Concomitant Antimicrobials: cefepime
- Dosing Plan
Continue: Vanc 750mg Q8H
- Monitoring Plan
Level(s) appropriate: Recheck trough at minimum of weekly intervals, Repeat sooner for changes in renal function or clinical status
Next Level Due (Date): by 01/21
- Follow Up
Pharmacy will continue to follow.
Vancomycin Follow UP
- -
Patient Age: 33
Patient Sex: Male
Vancomycin Day #: 6
Indication: Skin And Soft Tissue
Requesting Provider: Dr Piper / [facility]
Pertinent Antimicrobial Allergies:
Penicillin-hives
Amoxicillin-hives
Height / Weight:
Height 5 ft 9 in
Actual Weight 70.789 kg
IBW in k.7
Pertinent Past Medical History: IV ALINA
- Vital Signs / Lab Results
Temp Pulse Resp BP Pulse Ox
97.9 F 75 16 123/68 100
01/15/24 23:20 01/15/24 23:20 01/15/24 23:20 01/16/24 08:10 01/16/24 02:17
Lab Results - Chemistry
01/13/24
07:12
BUN 15
Creatinine 0.8
Estimated Creat Clear > 125
Microbiology Results
01/11/24 02:05 Blood Culture - Final
Blood/Venous No Growth - Final Report
01/11/24 01:20 Blood Culture - Final
Blood/Venous No Growth - Final Report
Therapeutic Drug Monitoring
Vancomycin Peak 18.5 ug/ml (18-) 01/14/24 01:28
Vancomycin Trough 12.3 ug/ml (5-20) 01/14/24 05:25
[2024-01-16] MEDS: MAXIPIME 2000 MG IV (10:05)
[2024-01-16] MEDS: STERILE WATER FOR INJECTION 10 ML IV (10:05)
--- NOTE | 2024-01-16 11:43 | W.PN.ID1 ---
Date of Service
Date of Service: January 16, 2024
Today's Communication
Continue antibiotics. See below�
Assessment / Plan
Bilateral upper extremity wounds secondary to IVDA.
MRSA infection
Recommendations:
Continue with vancomycin. Discontinue further cefepime.
Await acceptance at drug rehab, at which time will narrow abx to an oral regimen.
Monitor Vanco levels closely.
Continue with local care to the wounds.
At discharge/transfer to rehab facility, can transition to Zyvox 600 mg p.o. twice daily, or if that is cost prohibitive, Bactrim DS, 2 tabs p.o. twice daily.
Would continue antibiotics for an additional 7 days.
����������������������������������������������������������
Chief Complaint
-: Other (iatrogenic B/L UE SSTI 2* IVDA)
Subjective / Review of Systems
Review of Systems: No Fever and No Chills
Vital Signs / Physical Exam
Vital Signs
Vital Signs
Temp Pulse Resp BP Pulse Ox
97.8 F 91 16 123/68 99
01/16/24 07:00 01/16/24 07:00 01/16/24 07:00 01/16/24 08:10 01/16/24 10:18
Physical Exam
Constitutional: No Acute Distress, Comfortable and Non-toxic
Pulmonary: Non Labored
Gastrointestinal: Non Distended
Wound: Other (Bilateral arm was dressed. No erythema extending up the arm. No strikethrough.)
Objective Data
Lab Data
Lab Results
01/13/24 04:45
01/13/24 07:12
Estimated Creat Clear > 125 ml/min 01/13/24 07:12
Lactic Acid Cancelled 01/11/24 16:46
Total Bilirubin 0.5 mg/dl (0.2-1.3) 01/11/24 11:10
AST 30 U/L (17-59) 01/11/24 11:10
ALT 15 U/L (0-50) 01/11/24 11:10
Alkaline Phosphatase 87 U/L (38-126) 01/11/24 11:10
Most recent labs reviewed.
Micro Results:
01/11/24 02:05 Blood Culture - Final
Blood/Venous No Growth - Final Report
01/11/24 01:20 Blood Culture - Final
Blood/Venous No Growth - Final Report
--- NOTE | 2024-01-16 12:53 | PTCARENOTE ---
Contact from [facility] ([phone]) [facility]adone clinic said the patient was started on zyprexa 10mg at for bipolar 1 disorder and was manic with auditory and visual hallucinations. prescription was started on december 23 2023. made aware and
medication added to home list.
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
--- NOTE | 2024-01-16 14:59 | W.PN.UPDATE ---
Update Note
Progress Note Update
Patient seen and examined
Discussed with ID.
Discussed with resident
Bilateral upper extremity wounds with necrotic eschar status post excisional debridement.
No evidence for sepsis
Ongoing antibiotic treatment for bilateral cellulitis with plan to transition either to Zyvox of Bactrim upon discharge (depends on coverage and requirements at the inpatient drug rehab center)
IVDA.
Opiate use disorder
Continue methadone
Continue clonidine.
Pending placement to inpatient drug rehab.
[2024-01-16 15:00] VITALS: BP 110/68
[2024-01-16] MEDS: LOVENOX 40 MG SC (17:12)
[2024-01-16 17:27] VITALS: BP 115/71
[2024-01-16] MEDS: SENOKOT PO (20:02)
[2024-01-16] MEDS: COLACE PO (20:02)
[2024-01-16 20:19] VITALS: BP 119/77
[2024-01-16] MEDS: FLUSH (NSS) 2 FLUSH IV (21:58)
[2024-01-16 23:30] VITALS: BP 123/88
[2024-01-17 05:36] LABS: Blood Urea Nitrogen 17 mg/dl (9-20); Estimated Creatinine Clearance 115 ml/min
[2024-01-17] MEDS: VANCOCIN 150 IV ×3 (05:44→21:07)
[2024-01-17] MEDS: FLUSH (NSS) 2 FLUSH IV ×3 (05:46→21:10)
[2024-01-17 07:30] VITALS: BP 150/70
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
--- NOTE | 2024-01-17 08:04 | PHA.VAN.FU ---
Vancomycin Assessment / Plan
- Assessment
Renal Function: Stable
WBC's are: Trending Up
In the past 24 hrs, patient has been: Afebrile
- Dosing Plan
Continue: 750MG Q8H
- Monitoring Plan
No level(s) ordered at this time: CONSIDER FOR 01/21
- Follow Up
Pharmacy will continue to follow.
Vancomycin Follow UP
- -
Patient Age: 33
Patient Sex: Male
Vancomycin Day #: 7
Indication: Skin And Soft Tissue
Requesting Provider: Dr Piper / Young
Pertinent Antimicrobial Allergies:
Penicillin-hives
Amoxicillin-hives
Height / Weight:
Height 5 ft 9 in
Actual Weight 70.789 kg
IBW in k.7
Pertinent Past Medical History: IV ALINA
- Vital Signs / Lab Results
Temp Pulse Resp BP Pulse Ox
99.1 F 100 16 123/88 99
01/16/24 23:30 01/16/24 23:30 01/16/24 23:30 01/16/24 23:30 01/16/24 23:30
Lab Results - Chemistry
01/17/24
04:28
BUN 17
Creatinine 0.9
Estimated Creat Clear 115
Microbiology Results
01/11/24 02:05 Blood Culture - Final
Blood/Venous No Growth - Final Report
01/11/24 01:20 Blood Culture - Final
Blood/Venous No Growth - Final Report
Therapeutic Drug Monitoring
Vancomycin Peak 18.5 ug/ml (18-26) 01/14/24 01:28
Vancomycin Trough 12.3 ug/ml (5-20) 01/14/24 05:25
[2024-01-17] MEDS: SENOKOT 8.59999999999999964 MG PO ×2 (08:34→20:45)
[2024-01-17] MEDS: DOLOPHINE 70 MG PO (08:34)
[2024-01-17] MEDS: MIRALAX PO (08:35)
[2024-01-17] MEDS: CATAPRES 0.100000000000000006 MG PO ×2 (08:35→20:41)
[2024-01-17] MEDS: COLACE 100 MG PO ×2 (08:35→20:45)
--- NOTE | 2024-01-17 13:40 | W.PN.UPDATE ---
Update Note
Progress Note Update
Psychiatry asked to reassess pt, after request from family. Family is reporting pt is delusional/grandiose; however, family does not want pt to know about staff's communication with them. Discussed situation with covering hospitalist and nurse.
Pt seen, resting calmly in bed, watching TV, alert and oriented. Pt pleasant, making good eye contact, answering questions, discussed his treatment history. Affect appropriate, speech coherent, thought goal-directed. No evidence of delusions. No
signs of daniel or psychosis. Pt states he is hoping to finish IV antibiotics and get into rehab. He plans to stay on Methadone maintenance tx, currently continued on 70 mg daily. Pt states he has been prescribed olanzapine, which makes him tired.
He reports he has never had significant clean time since using drugs from about age 13. He states his last use was heroin and cocaine last 01/10/24- confirmed on UDS on admission. Pt denies abuse of alcohol or sedatives.
Imp: Opioid (heroin/fentanyl) and cocaine use d/o, severe; reported history of PTSD
No evidence of mood disturbance or psychosis on exam; no current indication for psychotropic medication
Rec: Refer for drug rehab when medically cleared; pt is agreeable/appears motivated. Communication with family without pt's knowledge/consent will not be therapeutic or improve pt's prognosis
will follow peripherally
--- NOTE | 2024-01-17 15:47 | PTCARENOTE ---
pt's mother called this morning with concerns that her son is not on any medications for his Bipolar, she stated that her son is hallucinating and has grandiose ideas and reporting those ideas to his girlfriend. Mom was very emotional and wanted a
phone call form medical team here at the hospital, made aware.
[2024-01-17 16:18] VITALS: BP 110/68
[2024-01-17] MEDS: LOVENOX 40 MG SC (17:37)
[2024-01-18 00:50] VITALS: BP 108/70
[2024-01-18] MEDS: VANCOCIN 150 IV ×3 (05:15→22:07)
[2024-01-18] MEDS: FLUSH (NSS) 2 FLUSH IV ×2 (05:16→14:30)
[2024-01-18 07:24] VITALS: BP 110/78
--- NOTE | 2024-01-18 07:50 | PHA.VAN.FU ---
Vancomycin Assessment / Plan
- Assessment
Renal Function: Stable
WBC's are: Trending Up
In the past 24 hrs, patient has been: Afebrile
- Dosing Plan
Continue: VANCOMYCIN 750MG Q8H
- Monitoring Plan
Level(s) appropriate: Recheck trough at minimum of weekly intervals, Repeat sooner for changes in renal function or clinical status
- Follow Up
Pharmacy will continue to follow.
Vancomycin Follow UP
- -
Patient Age: 33
Patient Sex: Male
Vancomycin Day #: 8
Indication: Skin And Soft Tissue
Requesting Provider: Dr Piper / Young
Pertinent Antimicrobial Allergies:
Penicillin-hives
Amoxicillin-hives
Height / Weight:
Height 5 ft 9 in
Actual Weight 70.789 kg
IBW in k.7
Pertinent Past Medical History: IV ALINA
- Vital Signs / Lab Results
Temp Pulse Resp BP Pulse Ox
99 F 96 16 110/78 97
01/18/24 07:24 01/18/24 07:24 01/18/24 07:24 01/18/24 07:24 01/18/24 07:24
Lab Results - Chemistry
01/17/24
04:28
BUN 17
Creatinine 0.9
Estimated Creat Clear 115
Therapeutic Drug Monitoring
Vancomycin Peak 18.5 ug/ml (18-26) 01/14/24 01:28
Vancomycin Trough 12.3 ug/ml (5-20) 01/14/24 05:25
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
[2024-01-18] MEDS: METHADONE 100 MG/10 ML 70 MG PO (08:41)
[2024-01-18] MEDS: SENOKOT 8.59999999999999964 MG PO ×2 (08:41→21:17)
[2024-01-18] MEDS: COLACE 100 MG PO ×2 (08:42→21:17)
[2024-01-18] MEDS: CATAPRES 0.100000000000000006 MG PO (08:47)
[2024-01-18] MEDS: MIRALAX PO (08:48)
[2024-01-18 08:55] VITALS: BP 120/82
[2024-01-18 15:00] VITALS: BP 111/73
[2024-01-18] MEDS: LOVENOX 40 MG SC (17:16)
[2024-01-18] MEDS: CATAPRES PO (21:18)
[2024-01-18 23:06] VITALS: BP 121/67
[2024-01-19] MEDS: VANCOCIN 150 IV ×3 (06:15→21:56)
[2024-01-19 07:17] VITALS: BP 134/74
[2024-01-19] MEDS: METHADONE 100 MG/10 ML 70 MG PO (08:05)
[2024-01-19] MEDS: COLACE 100 MG PO ×2 (08:05→20:45)
[2024-01-19] MEDS: CATAPRES 0.100000000000000006 MG PO ×2 (08:06→20:45)
[2024-01-19] MEDS: SENOKOT 8.59999999999999964 MG PO ×2 (08:06→20:44)
[2024-01-19] MEDS: MIRALAX PO (08:15)
--- NOTE | 2024-01-19 10:29 | W.PN.ID1 ---
Date of Service
Date of Service: January 19, 2024
Today's Communication
See below.
Assessment / Plan
Bilateral upper extremity wounds secondary to IVDA.
MRSA infection
Recommendations:
Blood cultures negative.
Continue with vancomycin (d9). Discontinue further cefepime.
Await acceptance at drug rehab, at which time will narrow abx to an oral regimen.
Monitor Vanco levels closely.
Continue with local care to the wounds.
At discharge/transfer to rehab facility, can transition to Bactrim DS, 2 tabs p.o. twice daily through 01/27/24
����������������������������������������������������������
Chief Complaint
-: Other (iatrogenic B/L UE SSTI 2* IVDA)
Subjective / Review of Systems
No complaints today.
Vital Signs / Physical Exam
Vital Signs
Vital Signs
Temp Pulse Resp BP Pulse Ox
98.4 F 85 16 134/74 100
01/19/24 07:17 01/19/24 08:06 01/19/24 07:17 01/19/24 08:06 01/19/24 07:17
Physical Exam
Constitutional: No Acute Distress
Wound: Other (BUE dressings intact)
Neurological: AO x 3
Objective Data
Lab Data
Lab Results
01/13/24 04:45
01/17/24 04:28
Estimated Creat Clear 115 ml/min 01/17/24 04:28
Lactic Acid Cancelled 01/11/24 16:46
Total Bilirubin 0.5 mg/dl (0.2-1.3) 01/11/24 11:10
AST 30 U/L (17-59) 01/11/24 11:10
ALT 15 U/L (0-50) 01/11/24 11:10
Alkaline Phosphatase 87 U/L (38-126) 01/11/24 11:10
Most recent labs reviewed.
Micro Results:
01/11/24 02:05 Blood Culture - Final
Blood/Venous No Growth - Final Report
01/11/24 01:20 Blood Culture - Final
Blood/Venous No Growth - Final Report
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
--- NOTE | 2024-01-19 12:16 | CM ---
Reviewed the chart notes and spoke with [facility] liaison Daniela. Per Daniela, she faxed [facility] information to the centers and awaiting outcome of review. CM continues to be available to patient/family and is monitoring medical plan for needs at
discharge.
Plan: Discharge to inpatient substance abuse facility. [facility] is the wound care.
[2024-01-19 15:15] VITALS: BP 135/78
--- NOTE | 2024-01-19 16:00 | PHA.VAN.FU ---
Vancomycin Assessment / Plan
- Assessment
Renal Function: No New Labs Today
In the past 24 hrs, patient has been: Afebrile
- Dosing Plan
Continue: Vanc 750mg Q8H
- Monitoring Plan
No level(s) ordered at this time: possible transition to PO antibiotics
Monitoring Comments: will hold off on repeat levels for now
- Follow Up
Pharmacy will continue to follow.
Vancomycin Follow UP
- -
Patient Age: 33
Patient Sex: Male
Vancomycin Day #: 9
Indication: Skin And Soft Tissue
Requesting Provider: Dr Piper / Young
Pertinent Antimicrobial Allergies:
Penicillin-hives
Amoxicillin-hives
Height / Weight:
Height 5 ft 9 in
Actual Weight 70.789 kg
IBW in k.7
Pertinent Past Medical History: IV ALINA
- Vital Signs / Lab Results
Temp Pulse Resp BP Pulse Ox
98.4 F 85 16 134/74 100
01/19/24 07:17 01/19/24 08:06 01/19/24 07:17 01/19/24 08:06 01/19/24 12:09
Lab Results - Chemistry
01/17/24
04:28
BUN 17
Creatinine 0.9
Estimated Creat Clear 115
Therapeutic Drug Monitoring
Vancomycin Peak 18.5 ug/ml (18-26) 01/14/24 01:28
Vancomycin Trough 12.3 ug/ml (5-20) 01/14/24 05:25
[2024-01-19] MEDS: LOVENOX 40 MG SC (18:23)
[2024-01-19 23:29] VITALS: BP 124/74
[2024-01-20] MEDS: VANCOCIN 150 IV ×3 (05:54→21:56)
[2024-01-20 08:00] VITALS: BP 121/70
[2024-01-20] MEDS: CATAPRES 0.100000000000000006 MG PO ×2 (08:05→20:39)
[2024-01-20] MEDS: COLACE 100 MG PO ×2 (08:05→20:39)
[2024-01-20] MEDS: METHADONE 100 MG/10 ML 70 MG PO (08:05)
[2024-01-20] MEDS: SENOKOT 8.59999999999999964 MG PO ×2 (08:08→20:40)
[2024-01-20] MEDS: MIRALAX PO (08:15)
--- NOTE | 2024-01-20 11:48 | CM ---
Addendum entered by Kaylyn Castro 01/20/24 14:00:
Faxed updated wound care and med list to Daniela at [facility] - [phone] per her request
Original Note:
Chart reviewed
Spoke with Daniela at [facility] [phone]
Reports updated info at [facility] and is waiting on return call from facility
She will update when she gets return call
CM will cont to be available as needed
Plan- D/C to inpatient substance abuse facility when accepted
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
--- NOTE | 2024-01-20 13:50 | PHA.VAN.FU ---
Vancomycin Assessment / Plan
- Assessment
Renal Function: No New Labs Today
In the past 24 hrs, patient has been: Afebrile
- Dosing Plan
Continue: Vanc 750mg Q8H
- Monitoring Plan
Peak Level: 01/21 00:30
Trough Level: 01/21 05:30
Monitoring Comments: levels to be drawn after 26th maintenance dose
Patient due for weekly levels, placement still pending - will obtain levels tonight
BUN & SCR ordered per protocol to be drawn with trough
- Follow Up
Pharmacy will continue to follow.
Vancomycin Follow UP
- -
Patient Age: 33
Patient Sex: Male
Vancomycin Day #: 10
Indication: Skin And Soft Tissue
Requesting Provider: Dr Piper / Young
Pertinent Antimicrobial Allergies:
Penicillin-hives
Amoxicillin-hives
Height / Weight:
Height 5 ft 9 in
Actual Weight 70.789 kg
IBW in k.7
Pertinent Past Medical History: IV ALINA
- Vital Signs / Lab Results
Temp Pulse Resp BP Pulse Ox
97.2 F 89 16 121/70 99
01/20/24 08:00 01/20/24 08:05 01/20/24 08:00 01/20/24 08:05 01/20/24 08:00
Therapeutic Drug Monitoring
Vancomycin Peak 18.5 ug/ml (18-26) 01/14/24 01:28
Vancomycin Trough 12.3 ug/ml (5-20) 01/14/24 05:25
[2024-01-20 15:43] VITALS: BP 114/70
[2024-01-20] MEDS: LOVENOX 40 MG SC (17:18)
[2024-01-20 23:17] VITALS: BP 118/66
[2024-01-21 06:10] LABS: Blood Urea Nitrogen 16 mg/dl (9-20); Estimated Creatinine Clearance 115 ml/min
[2024-01-21 06:21] LABS: Vancomycin Trough 13.1 ug/ml (5-20)
[2024-01-21] MEDS: VANCOCIN 150 IV (06:28)
[2024-01-21 07:45] VITALS: BP 118/72
[2024-01-21] MEDS: CATAPRES 0.100000000000000006 MG PO (08:01)
[2024-01-21] MEDS: COLACE 100 MG PO ×2 (08:02→19:55)
[2024-01-21] MEDS: METHADONE 100 MG/10 ML 70 MG PO (08:02)
[2024-01-21] MEDS: SENOKOT 8.59999999999999964 MG PO ×2 (08:02→19:55)
[2024-01-21] MEDS: MIRALAX PO (08:05)
--- NOTE | 2024-01-21 08:41 | W.PN.HOSP.TC ---
Addendum entered and electronically signed by Arnold Sandoval MD 01/21/24 15:53:
Patient seen and examined
No acute issues
Tolerates antibiotics
Pending placement to inpatient drug rehab.
Original Note:
Today's Communication/Plan
-
Continue antibiotics to complete overall course of treatment through 01/27/2024. At the time of discharge, transition to p.o. antibiotics to complete course per ID.
Continue wound care.
Patient waiting for inpatient drug rehab disposition.
Assessment / Plan
Assessment / Plan
Impression
Necrotizing skin and soft tissue with infection of bilateral upper extremities.
Mild leukocytosis, patient afebrile
IV drug abuse
Conditions prior to admission
Bipolar disease/PTSD
History of childhood mental trauma
Asthma-Stable
Smoker-cessation counseling
Hx of MRSA
Plan
Bilateral upper extremity necrotic wound with cellulitis and purulence
-IV drug abuse with suspected fentanyl/xylazine necrotic ulcer on posterior aspect of bilateral forearms with mild discharge.
-S/p excisional sharp debridement of skin and soft tissue infection of bilateral upper extremity.
-Normal bilateral pulses.
-Continue regular diet.
-Mild leukocytosis, patient afebrile.
-Monitor white count and temperature.
-Continue vancomycin, discontinue cefepime.
-Monitor vancomycin levels closely.
-Transition to Zyvox 600 mg p.o. twice daily for an additional 7 days on discharge.
-Consider Bactrim DS, 2 tabs p.o. twice daily if not cost effective.
-Continue local wound care.
-Continue methadone 70 mg daily.
-Cultures with no growth TD.
-ID following.
-Case management consult for drug rehab.
IV drug abuse
-Hep C antibody negative
-HIV test negative
-Psych following
-Continue Zanaflex and clonidine..
-Methadone maintenance
Bipolar disease/PTSD
-History of childhood mental trauma
-No apparent delusional ideation or hallucinations
-After seen again by psychiatry yesterday at my request
Asthma-Stable
Smoker
-cessation counseling
DVT prophylaxis
-Lovenox
Please see my and communication of yesterday after conversation with parents/was again seen by Dr. Wallis on psychiatry who again did not feel that the patient is actively delusional
Anticipated Discharge: Within 24 hours
Subjective/Interval History
-
Date of Service: January 21, 2024
Objective Data
-
Labs:
Laboratory Results
01/21/24
05:28
BUN 16
Creatinine 0.9
Vital Signs:
Vital Signs
Temp Pulse Resp BP Pulse Ox
98.0 F 81 12 118/72 99
01/21/24 07:45 01/21/24 08:01 01/21/24 07:45 01/21/24 08:01 01/21/24 07:45
I&O
01/20/24 01/21/24 01/22/24
06:59 06:59 06:59
Intake Total 520 / 520 920 / 920
Output Total 200 / 200 850 / 850
Balance 320 / 320 70 / 70
Review of Systems
-
History Source: Patient
Constitutional: Reports No Symptoms
EENT: Reports No Symptoms Reported
Respiratory: Reports No Symptoms
Cardiac: Reports No Symptoms
Abdomen/GI: Reports No Symptoms; Denies Abdominal Pain, Nausea or Vomiting
Genitourinary: Reports No Symptoms
Skin: Reports No Symptoms
Neuro: Reports No Symptoms
Endocrine: Reports No Symptoms
Physical Exam
-
General: Well Developed, No Apparent Distress and Conversant
HEENT: Normocephalic
Respiratory: Clear to Auscultation and Non Labored Respirations; Negative Wheezes or Crackles
Cardiac: Regular Rhythm and S1/S2; Negative Murmur or Rub
GI: Soft
Musculoskeletal: No Edema and Other (Bilateral gauze and Juan Manuel wraps of both forearms)
Skin: Warm and Dry
Neuro: Awake
Psych: Calm and Intact Judgement/Insight
Data Reviewed
-
Labs: Labs Reviewed by me and Discussed with Physician
Old Records: Reviewed
--- NOTE | 2024-01-21 08:49 | PHA.VAN.FU ---
Vancomycin Assessment / Plan
- Assessment
Renal Function: Stable
In the past 24 hrs, patient has been: Afebrile
- Assessment - Therapeutic Drug Monitoring
Extrapolated Cmax (mcg/mL): 27.1
Peak level was drawn: Appropriately (drawn ~1.5H after end of previous infusion)
Extrapolated Cmin (mcg/mL): 12.4
Trough Drawn: Appropriately
Levels were drawn: At steady state (levels drawn after 26th maintenance dose)
Calculated AUC (mcg*h/mL): 455
Calculated ke: 0.1118
Calculated half life (H): 6.2
Calculated Vd (L): 44 (~0.6 L/kg)
Calculated Vanc CL (ml/min): 82
Patient has had appropriate accumulation on regimen from levels drawn on 01/14
- Dosing Plan
Continue: Vanc 750mg Q8H
- Monitoring Plan
Level(s) appropriate: Recheck trough at minimum of weekly intervals, Repeat sooner for changes in renal function or clinical status
Next Level Due (Date): ~01/27
- Follow Up
Pharmacy will continue to follow.
Vancomycin Follow UP
- -
Patient Age: 33
Patient Sex: Male
Vancomycin Day #: 11
Indication: Skin And Soft Tissue
Requesting Provider: Dr Piper / Young
Pertinent Antimicrobial Allergies:
Penicillin-hives
Amoxicillin-hives
Height / Weight:
Height 5 ft 9 in
Actual Weight 70.789 kg
IBW in k.7
Pertinent Past Medical History: IV ALINA
- Vital Signs / Lab Results
Temp Pulse Resp BP Pulse Ox
98.0 F 81 12 118/72 99
01/21/24 07:45 01/21/24 08:01 01/21/24 07:45 01/21/24 08:01 01/21/24 07:45
Lab Results - Chemistry
01/21/24
05:28
BUN 16
Creatinine 0.9
Estimated Creat Clear 115
Therapeutic Drug Monitoring
Vancomycin Peak 23.0 ug/ml (18-26) 01/21/24 00:25
Vancomycin Trough 13.1 ug/ml (5-20) 01/21/24 05:27
--- NOTE | 2024-01-21 10:42 | W.PN.ID1 ---
Date of Service
Date of Service: January 21, 2024
Today's Communication
Continue abx. See below....
Assessment / Plan
Bilateral upper extremity wounds secondary to IVDA.
MRSA infection
Substance abuse
Recommendations:
Blood cultures negative.
Currently Vancomycin (d#12)
Await acceptance at drug rehab.
Transition to Bactrim DS 2 tabs BID for an additional 5 days. Follow BMP (K+)
Continue with local care to the wounds.
����������������������������������������������������������
Chief Complaint
-: Other (iatrogenic B/L UE SSTI 2* IVDA)
Subjective / Review of Systems
Review of Systems: No Fever and No Chills
Vital Signs / Physical Exam
Vital Signs
Vital Signs
Temp Pulse Resp BP Pulse Ox
98.0 F 81 12 118/72 99
01/21/24 07:45 01/21/24 08:01 01/21/24 07:45 01/21/24 08:01 01/21/24 09:36
Physical Exam
Constitutional: No Acute Distress, Comfortable and Non-toxic
Cardiovascular: S1/S2; Negative S3/S4
Pulmonary: Non Labored; Negative Wheezes
Gastrointestinal: Soft and Non Distended
Wound: Other (Bilateral upper extremity wounds noted. Minimal slough, with good granulation tissue. No malodor.)
Neurological: Awake and Alert
Psychological: Calm
Objective Data
Lab Data
Lab Results
01/13/24 04:45
01/21/24 05:28
Estimated Creat Clear 115 ml/min 01/21/24 05:28
Lactic Acid Cancelled 01/11/24 16:46
Total Bilirubin 0.5 mg/dl (0.2-1.3) 01/11/24 11:10
AST 30 U/L (17-59) 01/11/24 11:10
ALT 15 U/L (0-50) 01/11/24 11:10
Alkaline Phosphatase 87 U/L (38-126) 01/11/24 11:10
Most recent labs reviewed.
Micro Results:
01/11/24 02:05 Blood Culture - Final
Blood/Venous No Growth - Final Report
01/11/24 01:20 Blood Culture - Final
Blood/Venous No Growth - Final Report
--- NOTE | 2024-01-21 11:15 | WOUNDNOTE ---
WOC RN note: Patient's arm dressings changed. Wounds bobbin cleaner than last week. Current wound care appropriate. Will follow as needed.
--- NOTE | 2024-01-21 11:40 | CM ---
Reviewed the chart notes and spoke with Daniela with [facility]. [facility] is still reviewing clinical and referral has been made to [facility]. CM continues to be available to patient/family and is monitoring medical plan for
needs at discharge.
Plan: Discharge plans are for inpatient substance abuse where the patient's wounds to UEs can be accommodated.
[2024-01-21 15:36] VITALS: BP 129/74
--- NOTE | 2024-01-21 16:20 | PTCARENOTE ---
This RN spoke with the mother and father of the pt over the phone. Both are expressing concerns for their safety stating 'he is threatening to kill us and make you take our info out of the chart so we cannot be contacted about his care.' Father
yelled at this RN over the phone saying 'you are spilling information about us contacting you to our son.' Parents were informed on current plan of care, explained that we are awaiting placement and son has not been informed by staff of them
contacting us. All questions of family answered at this time, informed to call back with any further questions. Pt is resting comfortably and calm at this time.
[2024-01-21] MEDS: LOVENOX 40 MG SC (17:19)
[2024-01-21] MEDS: BACTRIM DS 800 MG/160 MG 2 TABLET PO (19:55)
[2024-01-21] MEDS: CATAPRES PO (19:58)
[2024-01-21 23:31] VITALS: BP 111/66
[2024-01-22 07:30] VITALS: BP 135/74
[2024-01-22] MEDS: BACTRIM DS 800 MG/160 MG 2 TABLET PO ×2 (08:20→19:52)
[2024-01-22] MEDS: CATAPRES 0.100000000000000006 MG PO (08:20)
[2024-01-22] MEDS: COLACE 100 MG PO ×2 (08:20→19:52)
[2024-01-22] MEDS: SENOKOT 8.59999999999999964 MG PO ×2 (08:20→19:52)
[2024-01-22] MEDS: MIRALAX PO (08:21)
[2024-01-22] MEDS: METHADONE 100 MG/10 ML 70 MG PO (08:21)
--- NOTE | 2024-01-22 11:16 | W.PN.ID1 ---
Date of Service
Date of Service: January 22, 2024
Today's Communication
Continue antibiotics. Continue local care to wounds.
Assessment / Plan
Bilateral upper extremity wounds secondary to IVDA.
MRSA infection
Substance abuse
Recommendations:
Blood cultures negative.
Wound overall looking markedly improved.
Currently awaiting acceptance at drug rehab.
Continue with Bactrim DS 2 tabs BID for an additional 4 days. Follow BMP (K+)
Continue with local care to the wounds.
����������������������������������������������������������
Chief Complaint
-: Other ( B/L UE SSTI 2* IVDA)
Subjective / Review of Systems
Review of Systems: No Fever, No Chills and No Cough
Vital Signs / Physical Exam
Vital Signs
Vital Signs
Temp Pulse Resp BP Pulse Ox
97.7 F 74 16 135/74 100
01/22/24 07:30 01/22/24 08:20 01/22/24 07:30 01/22/24 08:20 01/22/24 07:30
Physical Exam
Constitutional: No Acute Distress, Comfortable and Non-toxic
Eyes: No Conjunctival Hemorrhage and Sclera Anicteric
Cardiovascular: S1/S2; Negative S3/S4
Pulmonary: Non Labored
Wound: Other (Bilateral upper extremity wounds dressed. No erythema extending up the arm. No strikethrough.)
Neurological: Awake and Alert
Psychological: Calm
Objective Data
Lab Data
Lab Results
01/13/24 04:45
01/21/24 05:28
Estimated Creat Clear 115 ml/min 01/21/24 05:28
Lactic Acid Cancelled 01/11/24 16:46
Total Bilirubin 0.5 mg/dl (0.2-1.3) 01/11/24 11:10
AST 30 U/L (17-59) 01/11/24 11:10
ALT 15 U/L (0-50) 01/11/24 11:10
Alkaline Phosphatase 87 U/L (38-126) 01/11/24 11:10
Most recent labs reviewed.
Micro Results:
01/11/24 02:05 Blood Culture - Final
Blood/Venous No Growth - Final Report
01/11/24 01:20 Blood Culture - Final
Blood/Venous No Growth - Final Report
Care Review
Plan reviewed with: Other (Case Management)
--- NOTE | 2024-01-22 13:39 | CM ---
Reviewed the chart notes and spoke with Ching DUNBAR Liaison. Per Ching, patient has been accepted at [facility], unfortunately he is on a wait list for a bed. Patient, Attending and RN updated. CM continues to be available to
patient/family and is monitoring medical plan for needs at discharge.
Plan: Discharge to [facility] once a bed becomes available.
[2024-01-22 15:35] VITALS: BP 106/68
--- NOTE | 2024-01-22 16:53 | W.PN.HOSP.TC ---
Today's Communication/Plan
-
Continue antibiotics.
Wound care per
Discharge planing with ongoing disposition efforts
Assessment / Plan
Assessment / Plan
Impression
Necrotizing skin and soft tissue with infection of bilateral upper extremities.
Mild leukocytosis, patient afebrile
IV drug abuse
Conditions prior to admission
Bipolar disease/PTSD
History of childhood mental trauma
Asthma-Stable
Smoker-cessation counseling
Hx of MRSA
Plan
Bilateral upper extremity necrotic wound with cellulitis and purulence
-IV drug abuse with suspected fentanyl/xylazine necrotic ulcer on posterior aspect of bilateral forearms with mild discharge.
-S/p excisional sharp debridement of skin and soft tissue infection of bilateral upper extremity.
-Normal bilateral pulses.
-Continue regular diet.
-Mild leukocytosis, patient afebrile.
-Monitor white count and temperature.
-Continue vancomycin, discontinue cefepime.
-Monitor vancomycin levels closely.
-Transition to Zyvox 600 mg p.o. twice daily for an additional 7 days on discharge.
-Consider Bactrim DS, 2 tabs p.o. twice daily if not cost effective.
-Continue local wound care.
-Continue methadone 70 mg daily.
-Cultures with no growth TD.
-ID following.
-Case management consult for drug rehab.
IV drug abuse
-Hep C antibody negative
-HIV test negative
-Psych following
-Continue Zanaflex and clonidine..
-Methadone maintenance
Bipolar disease/PTSD
-History of childhood mental trauma
-No apparent delusional ideation or hallucinations
-After seen again by psychiatry yesterday at my request
Asthma-Stable
Smoker
-cessation counseling
DVT prophylaxis
-Lovenox
Please see my and communication of yesterday after conversation with parents/was again seen by Dr. Wallis on psychiatry who again did not feel that the patient is actively delusional
Anticipated Discharge: Within 24 hours
Subjective/Interval History
-
Date of Service: January 22, 2024
Objective Data
-
Vital Signs:
Vital Signs
Temp Pulse Resp BP Pulse Ox
97.7 F 74 16 135/74 100
01/22/24 07:30 01/22/24 08:20 01/22/24 07:30 01/22/24 08:20 01/22/24 11:23
I&O
01/21/24 01/22/24 01/23/24
06:59 06:59 06:59
Intake Total 920 / 920 2180 / 2180
Output Total 850 / 850
Balance 70 / 70 2180 / 2180
Physical Exam
-
General: Well Developed and No Apparent Distress
HEENT: Normocephalic, Atraumatic and Moist Mucous Membranes
Respiratory: Clear to Auscultation
Cardiac: Regular Rhythm and S1/S2; Negative Murmur, Rub or Gallop
GI: Soft, Nontender, Nondistended and Normal Bowel Sounds; Negative Organomegaly
Rectal: Deferred by Provider
Musculoskeletal: No Clubbing, No Cyanosis and No Edema
Skin: Negative Rash
Neuro: Nonfocal/Grossly Intact
[2024-01-22] MEDS: LOVENOX 40 MG SC (17:02)
[2024-01-22] MEDS: CATAPRES PO (20:01)
[2024-01-22 23:25] VITALS: BP 101/62
[2024-01-23] MEDS: CATAPRES 0.100000000000000006 MG PO ×2 (07:45→20:39)
[2024-01-23] MEDS: METHADONE 100 MG/10 ML 70 MG PO (07:45)
[2024-01-23] MEDS: BACTRIM DS 800 MG/160 MG 2 TABLET PO ×2 (07:49→20:39)
[2024-01-23] MEDS: COLACE 100 MG PO ×2 (07:49→20:39)
[2024-01-23] MEDS: MIRALAX PO (07:50)
[2024-01-23] MEDS: SENOKOT 8.59999999999999964 MG PO ×2 (07:50→20:39)
[2024-01-23 08:15] VITALS: BP 116/70
--- NOTE | 2024-01-23 11:49 | W.PN.HOSP.TC ---
Addendum entered and electronically signed by Arnold Sandoval MD 01/23/24 16:10:
Patient seen and examined
Discussed with resident
Discussed with case management
Impression/plan:
Necrotizing bilateral upper extremity cellulitis
IVDA baseline opiate dependence/use disorder
Transition to oral antibiotic to complete course through 01/26.
Wound care.
Discharge to inpatient drug rehab pending medical ability
Original Note:
Today's Communication/Plan
-
Continue antibiotics.
Continue wound care.
Discharge planning to drug rehab ongoing.
On discharge continue antibiotics till January 26
Assessment / Plan
Assessment / Plan
Impression
Necrotizing skin and soft tissue with infection of bilateral upper extremities.
Mild leukocytosis, patient afebrile
IV drug abuse
Conditions prior to admission
Bipolar disease/PTSD
History of childhood mental trauma
Asthma-Stable
Smoker-cessation counseling
Hx of MRSA
Plan
Bilateral upper extremity necrotic wound with cellulitis and purulence
-IV drug abuse with suspected fentanyl/xylazine necrotic ulcer on posterior aspect of bilateral forearms with mild discharge.
-S/p excisional sharp debridement of skin and soft tissue infection of bilateral upper extremity.
-Normal bilateral pulses.
-Continue regular diet.
-Mild leukocytosis, patient afebrile.
-Monitor white count and temperature.
-Continue vancomycin, discontinue cefepime.
-Monitor vancomycin levels closely.
-Transition to Zyvox 600 mg p.o. twice daily for an additional 7 days on discharge.
-Consider Bactrim DS, 2 tabs p.o. twice daily if not cost effective.
-Continue local wound care.
-Continue methadone 70 mg daily.
-Cultures with no growth TD.
-ID following.
-Case management consult for drug rehab.
IV drug abuse
-Hep C antibody negative
-HIV test negative
-Psych following
-Continue Zanaflex and clonidine..
-Methadone maintenance
Bipolar disease/PTSD
-History of childhood mental trauma
-No apparent delusional ideation or hallucinations
-After seen again by psychiatry yesterday at my request
Asthma-Stable
Smoker
-cessation counseling
DVT prophylaxis
-Lovenox
Please see my and communication of yesterday after conversation with parents/was again seen by Dr. Wallis on psychiatry who again did not feel that the patient is actively delusional
Anticipated Discharge: Today
Subjective/Interval History
-
Date of Service: January 23, 2024
Objective Data
-
Vital Signs:
Vital Signs
Temp Pulse Resp BP Pulse Ox
98.4 F 76 17 116/70 99
01/23/24 08:15 01/23/24 08:15 01/23/24 08:15 01/23/24 08:15 01/23/24 08:15
I&O
01/22/24 01/23/24 01/24/24
06:59 06:59 06:59
Intake Total 2180 / 2180 1420 / 1420
Balance 2180 / 2180 1420 / 1420
Review of Systems
-
History Source: Patient
Constitutional: Reports No Symptoms
EENT: Reports No Symptoms Reported
Respiratory: Reports No Symptoms
Cardiac: Reports No Symptoms
Abdomen/GI: Reports No Symptoms; Denies Abdominal Pain, Nausea or Vomiting
Genitourinary: Reports No Symptoms
Skin: Reports No Symptoms
Neuro: Reports No Symptoms
Endocrine: Reports No Symptoms
Physical Exam
-
General: Well Developed and No Apparent Distress
HEENT: Normocephalic, Atraumatic and Moist Mucous Membranes
Respiratory: Clear to Auscultation
Cardiac: Regular Rhythm and S1/S2; Negative Murmur, Rub or Gallop
GI: Soft, Nontender, Nondistended and Normal Bowel Sounds; Negative Organomegaly
Rectal: Deferred by Provider
Musculoskeletal: No Clubbing, No Cyanosis and No Edema
Skin: Negative Rash
Neuro: Nonfocal/Grossly Intact
Psych: Calm and Intact Judgement/Insight
Data Reviewed
-
Labs: Labs Reviewed by me and Discussed with Physician
Old Records: Reviewed
--- NOTE | 2024-01-23 14:17 | CM ---
Reviewed the chart notes. Waiting on bed at [facility] to open. CM continues to be available to patient/family and is monitoring medical plan for needs at discharge.
Plan: Discharge to [facility] when bed becomes available.
[2024-01-23 16:26] VITALS: BP 123/68
[2024-01-23] MEDS: LOVENOX 40 MG SC (17:41)
[2024-01-23 23:38] VITALS: BP 99/62
[2024-01-24 07:45] VITALS: BP 118/68
[2024-01-24] MEDS: BACTRIM DS 800 MG/160 MG 2 TABLET PO ×2 (09:11→19:34)
[2024-01-24] MEDS: CATAPRES 0.100000000000000006 MG PO ×2 (09:11→19:34)
[2024-01-24] MEDS: COLACE 100 MG PO ×2 (09:11→19:34)
[2024-01-24] MEDS: SENOKOT 8.59999999999999964 MG PO ×2 (09:11→19:33)
[2024-01-24] MEDS: METHADONE 100 MG/10 ML 70 MG PO (09:12)
[2024-01-24] MEDS: MIRALAX PO (09:13)
--- NOTE | 2024-01-24 09:48 | W.PN.HOSP.TC ---
Today's Communication/Plan
-
pending placement to inpatient drug rehab program
Assessment / Plan
Assessment / Plan
Impression
Necrotizing skin and soft tissue with infection of bilateral upper extremities.
Mild leukocytosis, patient afebrile
IV drug abuse
Conditions prior to admission
Bipolar disease/PTSD
History of childhood mental trauma
Asthma-Stable
Smoker-cessation counseling
Hx of MRSA
Plan
Bilateral upper extremity necrotic wound with cellulitis and purulence
-IV drug abuse with suspected fentanyl/xylazine.
- necrotic ulcer on posterior aspect of bilateral forearms with mild discharge.
-S/p excisional sharp debridement of skin and soft tissue infection of bilateral upper extremity on 01/13
-Normal bilateral pulses.
-Continue regular diet.
-Mild leukocytosis, patient afebrile.
-Monitor white count and temperature.
-on Bactrim until 01/26
-Continue local wound care.
-Continue methadone 70 mg daily.
-Cultures with no growth TD.
-ID following.
-Case management consult for drug rehab pending placement
IV drug abuse
-Hep C antibody negative
-HIV test negative
-Psych following
-Continue Zanaflex and clonidine.
-Methadone maintenance
Bipolar disease/PTSD
-History of childhood mental trauma
-No apparent delusional ideation or hallucinations
-psych following
Asthma-Stable
Smoker
-cessation counseling
DVT prophylaxis: Lovenox
Code: Full
Anticipated Discharge: > 48 hours
Subjective/Interval History
-
Date of Service: January 24, 2024
no complaints presently
Objective Data
-
Vital Signs:
Vital Signs
Temp Pulse Resp BP Pulse Ox
97.7 F 78 18 118/68 97
01/24/24 07:45 01/24/24 09:11 01/24/24 07:45 01/24/24 09:11 01/24/24 07:45
I&O
01/23/24 01/24/24 01/25/24
06:59 06:59 06:59
Intake Total 1420 / 1420 1680 / 1680
Balance 1420 / 1420 1680 / 1680
Physical Exam
-
General: No Apparent Distress
HEENT: Normocephalic and Atraumatic
Respiratory: Negative Wheezes
Cardiac: Regular Rhythm and S1/S2
GI: Soft and Nontender
Musculoskeletal: Other (bilateral UE dressings intact)
Neuro: AO x 3
Psych: Calm
Data Reviewed
-
Total Time Spent with Patient (in minutes): 40
Labs: Labs Reviewed by me
--- NOTE | 2024-01-24 11:37 | CM ---
CM reviewed pt with Dr Cardenas
--- NOTE | 2024-01-24 11:38 | CM ---
CM reviewed pt with Dr Watkins- remains medically ready for dc
Call with [facility]- pt remains clinically accepted at [facility]
Remains on W/L for bed- no bed available today
Once bed available, pt will require auth for inpt D/A
[facility] will continue to follow
Discharge Disposition-[facility] for inpt D/A
[2024-01-24 15:25] VITALS: BP 110/75
[2024-01-24] MEDS: LOVENOX 40 MG SC (17:14)
[2024-01-24 23:31] VITALS: BP 97/56
[2024-01-25 07:27] VITALS: BP 110/62
[2024-01-25] MEDS: BACTRIM DS 800 MG/160 MG 2 TABLET PO (09:11)
[2024-01-25] MEDS: COLACE 100 MG PO (09:11)
[2024-01-25] MEDS: SENOKOT 8.59999999999999964 MG PO (09:12)
[2024-01-25] MEDS: METHADONE 100 MG/10 ML 70 MG PO (09:16)
[2024-01-25] MEDS: CATAPRES PO (09:20)
[2024-01-25] MEDS: MIRALAX PO (09:20)
--- NOTE | 2024-01-25 11:04 | W.PN.HOSP.TC ---
Today's Communication/Plan
-
dc to acute drug rehab
Assessment / Plan
Assessment / Plan
Impression
Necrotizing skin and soft tissue with infection of bilateral upper extremities.
Mild leukocytosis, patient afebrile
IV drug abuse
Conditions prior to admission
Bipolar disease/PTSD
History of childhood mental trauma
Asthma-Stable
Smoker-cessation counseling
Hx of MRSA
Plan
Bilateral upper extremity necrotic wound with cellulitis and purulence
-IV drug abuse with suspected fentanyl/xylazine.
- necrotic ulcer on posterior aspect of bilateral forearms with mild discharge.
-S/p excisional sharp debridement of skin and soft tissue infection of bilateral upper extremity on 01/13
-Normal bilateral pulses.
-Continue regular diet.
-Mild leukocytosis, patient afebrile.
-Monitor white count and temperature.
-on Bactrim until 01/26
-Continue local wound care.
-Continue methadone 70 mg daily.
-Cultures with no growth TD.
-ID following.
-Case management consult for drug rehab pending placement
IV drug abuse
-Hep C antibody negative
-HIV test negative
-Psych following
-Continue Zanaflex and clonidine.
-Methadone maintenance
Bipolar disease/PTSD
-History of childhood mental trauma
-No apparent delusional ideation or hallucinations
-psych following
Asthma-Stable
Smoker
-cessation counseling
DVT prophylaxis: Lovenox
Code: Full
More than 30 minutes spent in discharge including
Final examination of the patient
Summarizing hospital stay
Instructions for continuing care to all relevant caregivers
Preparation of discharge records, prescriptions, and referral forms
Total time spent (in minutes): 41
Anticipated Discharge: Today
Subjective/Interval History
-
Date of Service: January 25, 2024
denies any new complaints
for transfer to acute rehab today
Objective Data
-
Vital Signs:
Vital Signs
Temp Pulse Resp BP Pulse Ox
97.4 F 69 16 106/67 75
01/25/24 07:27 01/25/24 07:27 01/25/24 07:27 01/25/24 09:20 01/25/24 07:27
I&O
01/24/24 01/25/24 01/26/24
06:59 06:59 06:59
Intake Total 1680 / 1680 2039
Balance 1680 / 1680 2039
Physical Exam
-
General: No Apparent Distress
HEENT: Normocephalic and Atraumatic
Respiratory: Negative Wheezes or Rales
Cardiac: Regular Rhythm and S1/S2
GI: Soft
Genito-urinary: No Costovertebral Tender
Psych: Calm
Data Reviewed
-
Total Time Spent with Patient (in minutes): 41
Labs: Labs Reviewed by me
--- NOTE | 2024-01-25 11:24 | CM ---
CM reviewed pt with Don[facility] has bed available today and he has obtained [facility] auth
[facility] will send transportation at [address]
Bedside meeting with pt with update
He has alerted family of plan
Update to Dr Watkins
Discharge Disposition- [facility] tx
--- NOTE | 2024-01-25 12:27 | PTCARENOTE ---
pt being d/c to [facility] today. 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 Pt. Showered. Midline removed and wound care done. D/C instructions reviewed with patient. Informed patient all information about d/c instructions and scripts from doctor
sent to [facility].
--- NOTE | 2024-01-28 08:41 | W.DS.TRANS ---
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
-
Discharge Instructions:
Discharge Diagnosis/Procedures bilateral upper extremity necrotic wound (
cellulitis) requiring debridement 01/13
Diet Regular
Activity As tolerated
Bathing Restrictions None
Instructions:
Stand-Alone Forms:
Changes to Home Medications: No
Discharge Medications:
DC Medications w/original date entered in [facility]
Methadone 70 mg PO DAILY Mental Health/Anxiety #5 tabs 01/25/24
clonidine HCl 0.1 mg tablet 0.1 mg PO BID #60 tabs 01/25/24
docusate sodium 100 mg capsule 100 mg PO BID #60 caps 01/25/24
sulfamethoxazole 800 mg-trimethoprim 160 mg tablet 2 tab PO BID #6 tabs 01/25/24
tizanidine 2 mg tablet 2 mg PO Q4HPRN PRN withdrawal symptoms #10 tabs 01/25/24
Home Medication Changes
Pending Results: No
== END 2024-01-25 12:53 | DRG 264 ==
LOC: 2 NORTH 03:56
PROVIDERS: Internal Medicine; Internal Medicine Infectious Disease; Surgery; ADMITTING PHYSICIAN Internal Medicine; ATTENDING PHYSICIAN Internal Medicine; CONSULT PHYSICIAN Internal Medicine Infectious Disease; CONSULT PHYSICIAN Surgery; EMERGENCY PHYSICIAN Emergency Medicine; FAMILY PHYSICIAN Family Medicine; OTHER PHYSICIAN Hospitalist
PROC: 0JDH0ZZ Extraction of Left Lower Arm Subcutaneous Tissue and Fascia, Open Approach (ICD-10-PCS; 2024-01-13)
PROC: 0JBH0ZZ Excision of Left Lower Arm Subcutaneous Tissue and Fascia, Open Approach (ICD-10-PCS; 2024-01-13)
PROC: 0JBG0ZZ Excision of Right Lower Arm Subcutaneous Tissue and Fascia, Open Approach (ICD-10-PCS; 2024-01-13)
PROC: 0JDG0ZZ Extraction of Right Lower Arm Subcutaneous Tissue and Fascia, Open Approach (ICD-10-PCS; 2024-01-13)
DX: I96 Gangrene, not elsewhere classified (principal); L03.114 Cellulitis of left upper limb; F11.23 Opioid dependence with withdrawal; F31.89 Other bipolar disorder; F14.20 Cocaine dependence, uncomplicated; L03.113 Cellulitis of right upper limb; S51.832A Puncture wound without foreign body of left forearm, initial encounter; S51.831A Puncture wound without foreign body of right forearm, initial encounter; R22.33 Localized swelling, mass and lump, upper limb, bilateral; J45.909 Unspecified asthma, uncomplicated; B95.62 Methicillin resistant Staphylococcus aureus infection as the cause of diseases classified elsewhere; F43.10 Post-traumatic stress disorder, unspecified; F17.200 Nicotine dependence, unspecified, uncomplicated; D72.829 Elevated white blood cell count, unspecified; X58.XXXA Exposure to other specified factors, initial encounter; Y93.89 Activity, other specified; Y92.9 Unspecified place or not applicable; Z86.14 Personal history of Methicillin resistant Staphylococcus aureus infection; Z88.0 Allergy status to penicillin; Z62.810 Personal history of physical and sexual abuse in childhood
CPT/HCPCS: 80048; 80053; 80202; 80306; 80307; 82565; 83605; 84520; 85025; 86803; 87040; 87389; 93005; 96365; 99284

== ENCOUNTER 2024-11-25 14:02 | Emergency (ER) | payer MEDICARE, SELFPAY ==
[2024-11-25 14:17] VITALS: BP 153/97
[2024-11-25 14:40] LABS: % Basophils 1.1 % (0-2); % Eosinophils 1.9 % (0-6); % Immature Granulocytes 0.3 % (0-0.5); % Lymphocytes 36.1 % (20.5-51.1); % Monocytes 8.7 % (1.7-9.3); % Neutrophils 51.9 % (42.2-75.2); Absolute Basophils 0.1 10^3/uL (0-0.2); Absolute Eosinophils 0.1 10^3/uL (0-0.7); Absolute Lymphocytes 2.5 10^3/uL (1.2-3.4); Absolute Monocytes 0.6 10^3/uL (0.1-0.6); Absolute Neutrophils 3.6 10^3/uL (1.4-6.5); Hematocrit 28.7 % (39.0-52.0); Hemoglobin 9.6 g/dL (13.0-18.0); Mean Corp Hgb Conc. 33.4 g/dL (33.0-37.0); Mean Corpuscular Hgb 25.5 pg (27.0-31.0); Mean Corpuscular Volume 76.3 fL (80.0-94.0); Nucleated Red Blood Cells % 0 % (-); Platelet Count 218 10^3/uL (130-400); Red Blood Cell Count 3.76 10^6/uL (4.70-6.10)
[2024-11-25 15:01] LABS: ALT (SGPT) 27 U/L (0-50); AST (SGOT) 39 U/L (17-59); Albumin 4.8 g/dl (3.5-5.0); Alkaline Phosphatase 64 U/L (38-126); Blood Urea Nitrogen 51 mg/dl (9-20); Calcium 10.1 mg/dl (8.4-10.2); Carbon Dioxide 21 mmol/L (22-30); Chloride 103 mmol/L (98-107); Glucose 106 mg/dl (70-99); Sodium 140 mmol/L (135-145); Total Bilirubin 0.3 mg/dl (0.2-1.3); Total Protein 8.2 g/dl (6.3-8.2); eGFR 19.54
--- NOTE | 2024-11-25 15:03 | CM ---
Addendum entered by Stacie Coelho RN 11/25/24 18:26:
LEXI updated Dr. Shafer with HD planning challenges.
Addendum entered by Stacie Coelho RN 11/25/24 17:30:
director spoke with Remy from [facility] and requested placement at [facility]. LEXI will await call back from [facility] on 11/26 to discuss placement efforts further.
Addendum entered by Stacie Coelho RN 11/25/24 17:03:
LEXI was advised by director that risk as been notified.
Addendum entered by Stacie Coelho RN 11/25/24 16:34:
LEXI received call from [facility] hospitalist advising that this patient was a difficult placement and decision was made to discharge with plan for patient to receive HD at his local hospital. HD director social welfare at [facility] was to continue placement
efforts. The hospitalist that discharged him is Dr. Delgado [phone].
LEXI spoke with Max at [facility]. He is aware of this patient. [facility] advised that the [facility] is able to accept, but the nephrology group at [place] is unable to accept because of insurance. [facility] will continue to work with patient and HD
director social welfare at [facility] for placement.
LEXI updated director Gabrielle Grullon.
Addendum entered by Stacie Coelho RN 11/25/24 15:22:
LEXI spoke with BILL Drummond at [facility]. She advised that the HD director social welfare's plan was to continue to look for HD placement and then send patient to emergency room at [facility] for HD. Hoda will contact HD director social welfare at [facility]
for further information.
Original Note:
LEXI reviewed medical records. As per seo coordinator, patient is presenting to emergency room for HD. LEXI left message for case management at [facility] for further information on discharge plan.
[2024-11-25 17:30] VITALS: BP 133/95
--- NOTE | 2024-11-25 19:38 | ED.GENMED ---
History of Present Illness
General
Chief Complaint: Social Service Referral
Source: patient
Exam Limitations: none
Time Seen by Provider: 11/25/24 18:24
Nursing documentation reviewed up to this point in time: agreed with
History of Present Illness
History of Present Illness:
34-year-old male with history as documented presents to the ER seeking dialysis. Patient apparently had a complicated recent admission at [facility] in [place] recently�apparently was admitted with drug overdose and rhabdomyolysis and
subsequently developed renal failure. He says he was admitted for about 2 weeks and was discharged Friday. He says that he received dialysis during admission and he has a right subclavian line for dialysis. He had his last dialysis session on
Friday 11/23. He says that unfortunately prior to discharge from [facility] they were not able to help to establish an outpatient dialysis center for him and he says that he was told he needs to go to the ER for dialysis in the meantime. He feels
well he has no complaints�denies any shortness of breath, swelling of the legs or any other issues.
Past History
Past History
ED Past Medical History: Asthma, Psychiatric (Bipolar disorder, Substance abuse) and Other (MRSA bacteremia, IV opioid use, IV cocaine use)
ED Past Surgical History: None
Social History
Tobacco: Non-smoker
Alcohol: Occasional
Drug: Narcotics and Other
Personal: Single
Living: with family
Employment: Employed
Family History
Family History: Other (No significant)
Review of Systems
Review of Systems
All Other Systems: ROS reviewed and negative except as documented in HPI and ROS
Respiratory: Denies trouble breathing
Musculoskeletal: Denies edema
Phy Exam
Physical Exam
Physical Exam:
General: Awake, alert, oriented x3; no acute distress
Head: Normocephalic, atraumatic
Eyes: Conjunctiva normal
Throat: Airway intact, handling secretions
Neck: Trachea midline, no JVD
Lungs: Clear to auscultation bilaterally, no wheezing, rales, rhonchi
Heart: Regular rate, right subclavian dialysis line in place
Neuro: Cranial nerves grossly intact, speech fluid
Extremities: Warm and well-perfused
Scores
Heart Failure Risk
Heart Failure Risk Score: Not Applicable
Heart Score for Chest Pain Patients
STEMI patient?: Not applicable
Withdrawal Assessment of Alcohol
Withdrawal Assessment Completed?: Not applicable
Course
Orders/Labs/Results
Orders:
Orders
11/25/24 14:32
Complete Blood Count/With Diff Urgent
Comprehensive Metabolic Panel Urgent
11/25/24 15:30
Case Management Consult ONCE
Case Management Consult: Discharge Planning
Other
Requested By:: PHYSICIAN
Comment: needs dialysis set up
Abnormal Lab Results
11/25/24
14:32
RBC 3.76 L 10^6/uL
(4.70-6.10)
Hgb 9.6 L g/dL
(13.0-18.0)
Hct 28.7 L %
(39.0-52.0)
MCV 76.3 L fL
(80.0-94.0)
MCH 25.5 L pg
(27.0-31.0)
RDW 17.0 H %
(11.5-14.5)
Carbon Dioxide 21 L mmol/L
(22-30)
BUN 51 H mg/dl
(9-20)
Creatinine 3.9 H mg/dL
(0.7-1.3)
Glucose 106 H mg/dl
(70-99)
11/25/24 14:32
11/25/24 14:32
Vital Signs
Initial and Last Documented VS:
Initial Vital Signs
Temp Pulse Resp BP Pulse Ox
36.7 C 84 16 153/97 99
11/25/24 14:17 11/25/24 14:17 11/25/24 14:17 11/25/24 14:17 11/25/24 14:17
Last Documented Vital Signs
Temp Pulse Resp BP Pulse Ox
36.5 C 97 16 133/95 98
11/25/24 17:30 11/25/24 17:30 11/25/24 17:30 11/25/24 17:30 11/25/24 17:30
MDM/Problems Addressed
Differential Diagnosis Includes:
Dialysis
MDM/Problems Addressed:
34-year-old male presents seeking his routine dialysis�apparently was discharged Friday from [facility], had a full dialysis session Friday. He was told to go to ER for dialysis until they are able to arrange for regular dialysis center. He is not
volume overloaded. Labs were sent off including a CBC and a CMP�CMP shows creatinine 3.9, BUN 51, normal potassium. He is not volume overloaded and his electrolytes are acceptable�there is no indication for emergent dialysis at this point in time.
I did speak to the mill operator head to see if we can arrange for outpatient dialysis I also had the case preparer and liner evaluate�case management will work towards placing an outpatient dialysis center. Per nephrology we can admit for dialysis tomorrow while
ranging for outpatient dialysis center. I spoke to the patient he refused to stay in the hospital, he wishes to be discharged. He says he will come back tomorrow for dialysis.
Chronic conditions affecting care:
ESRD
*Critical Care Note
Total Time (30-74mins, 75-104mins- exclusive of procedures): Not Applicable
ED Attending Note
-
Portions of this chart may have been created with voice recognition software.� Occasional wrong word or��sound alike� substitutions may have occurred due to the inherent limitations of voice recognition software.
Discharge Plan
Departure
Patient Disposition: Home (Routine Discharge)
Date of Disposition: 11/25/24
Time of Disposition: 18:59
Patient with high blood pressure during this ER visit?: Yes
Discharge Problem:
ESRD needing dialysis
Instructions: Hemodialysis
Prescriptions:
No Action
clonidine HCl 0.1 mg Tablet
0.1 mg PO BID Qty: 60 0RF
sulfamethoxazole-trimethoprim 800-160 mg Tablet
2 tab PO BID Qty: 6 0RF
docusate sodium 100 mg Capsule
100 mg PO BID Qty: 60 0RF
tizanidine 2 mg Tablet
2 mg PO Q4HPRN PRN (Reason: withdrawal symptoms) Qty: 10 0RF
Methadone 70 mg tablet
70 mg PO DAILY Qty: 5 0RF
Patient Comments:
10/24/2023, patient uses [facility] in [place], [place]
phone: [phone]
hours: M-F: 0600 - 1430; Sa and Sun.: 0700 - 1000
10/24/2023, received verbal confirmation from [facility] concerning patient's Methadone dose and frequency.
Referrals:
Anshu Rose, [Family Provider] -
Activity Restrictions/Additional Instructions:
Thank you for visiting the Emergency Department at [facility].
1. Please schedule a follow up appointment as directed. Call first thing tomorrow morning to make an appointment.
2. If indicated, please take your medications as instructed and indicated on discharge paperwork.
3. If any of your symptoms do not improve, or persist, or become more severe within 6-12 hours, please return to the emergency department for further care.
4. Please return to the emergency department if you develop a headache, neck pain/stiffness, fever greater than 100.4F, chest pain, shortness of breath, persistent nausea, vomiting, slurred speech, difficulty walking, numbness/tingling, weakness,
signs of infection or any other symptoms that are worrisome to you.
Please call [phone] if you have any questions.
Interventions
Interventions:
*Nursing Disposition Last Done: 11/25/24 19:26
ED-Psychological Assessment Last Done: 11/25/24 19:12
Discharge Date and Time
Discharge Date/Time: 11/25/24 19:26
Print Language: JORDANIAN
== END 2024-11-25 19:26 | disposition home or self-care (01) ==
LOC: EMR 14:02
PROVIDERS: Emergency Medicine; EMERGENCY PHYSICIAN Emergency Medicine; FAMILY PHYSICIAN Family Medicine
DX: N18.6 End stage renal disease (principal); Z99.2 Dependence on renal dialysis; J45.909 Unspecified asthma, uncomplicated; F31.9 Bipolar disorder, unspecified; F19.10 Other psychoactive substance abuse, uncomplicated
CPT/HCPCS: 99282; 80053; 85025

== ENCOUNTER 2024-11-26 08:32 | Emergency (ER) | payer MEDICARE, SELFPAY ==
[2024-11-26 08:52] VITALS: BP 145/97
--- NOTE | 2024-11-26 09:14 | ED.GENMED ---
History of Present Illness
General
Chief Complaint: Abnormal Lab Value
Source: patient and records
Exam Limitations: none
Time Seen by Provider: 11/26/24 09:09
Nursing documentation reviewed up to this point in time: agreed with
History of Present Illness
History of Present Illness:
34-year-old male with history as documented returns to the ER seeking dialysis. Here yesterday but unable to obtain dialysis due to late hour and lack of dialysis nurse availability�there was no indication of need for emergent dialysis. Patient
was recommended for admission for dialysis today and coordination of outpatient dialysis with case management but declined. He returns today seeking dialysis. Last dialyzed 11/23/2024. He denies any symptoms this morning says that he feels well.
Past History
Past History
ED Past Medical History: Asthma, Psychiatric (Bipolar disorder, Substance abuse) and Other (MRSA bacteremia, IV opioid use, IV cocaine use)
ED Past Surgical History: None
Social History
Tobacco: Non-smoker
Alcohol: Occasional
Drug: Narcotics and Other
Personal: Single
Living: with family
Employment: Employed
Family History
Family History: Other (No significant)
Review of Systems
Review of Systems
All Other Systems: ROS reviewed and negative except as documented in HPI and ROS
Respiratory: Denies trouble breathing
Cardiac: Denies chest pain
ABD/GI: Denies abdominal pain or nausea
Musculoskeletal: Denies edema
Phy Exam
Physical Exam
Physical Exam:
General: Well appearing and non-toxic
HEENT: protecting airway
Neck: appears supple
CV: No evidence of cyanosis
Resp: No accessory muscle use
Abd: Non-distended
Extremities: No deformities
Neuro: Alert
Psych: Normal affect
Skin: Intact, right subclavian dialysis catheter in place
Scores
Heart Failure Risk
Heart Failure Risk Score: Not Applicable
Heart Score for Chest Pain Patients
STEMI patient?: Not applicable
Withdrawal Assessment of Alcohol
Withdrawal Assessment Completed?: Not applicable
Course
Orders/Labs/Results
Orders:
Orders
11/26/24 09:10
Case Management Consult ONCE
Case Management Consult: Other
Comment: dialysis
NEPHROLOGY CONSULT Urgent
Consulting Provider: Patricia Orta
Was physician already notified: Yes
11/26/24 10:07
Comprehensive Metabolic Panel Urgent
11/26/24 10:33
Albumin Human 25% 50 ml [Flexbumin 25% For Hemodialysis] 12.5 grams IV HD-Q1HPRN PRN
Epoetin Bryce-Epbx [Retacrit] 4,000 units IV HD-ONCE ONE
Heparin 500 units IV HD-ONCE ONE
Heparin 500 units IV HD-ONCE ONE
Heparin See Dose Instructions INTRACATH HD-ONCE ONE
Mannitol 25% 12.5 grams IV HD-Q1HPRN PRN
Hemodialysis treatment As Directed
Treatment date:: 11/26/24
Treatment type: Hemodialysis
Ultrafiltration (kg): 1-1.5
Treatment time (duration): 3 hours 30 minutes
Use dialysis access:: Tunneled Cath
Dialyzer:: Optiflux 160
Blood flow rate minimum: 350
Blood flow rate maximum: 400
Dialysis flow rate: 600 mL/min
Dialysate temperature: 36 degrees Celsius
Sodium (Na): 137
Potassium (K): 3
Calcium (Ca): 2.5
Bicarbonate (HCO3): 35
11/26/24 14:05
Hepatitis B Surface Antigen Urgent
Abnormal Lab Results
11/26/24
10:07
BUN 52 H mg/dl
(9-20)
Creatinine 3.4 H mg/dL
(0.7-1.3)
11/26/24 08:58
11/26/24 10:07
Vital Signs
Initial and Last Documented VS:
Initial Vital Signs
Temp Pulse Resp BP Pulse Ox
36.6 C 88 20 145/97 99
11/26/24 08:52 11/26/24 08:52 11/26/24 08:52 11/26/24 08:52 11/26/24 08:52
Last Documented Vital Signs
Temp Pulse Resp BP Pulse Ox
36.6 C 88 16 145/97 99
11/26/24 08:52 11/26/24 08:52 11/26/24 16:00 11/26/24 08:52 11/26/24 08:52
MDM/Problems Addressed
Differential Diagnosis Includes:
ESRD requiring dialysis
MDM/Problems Addressed:
34-year-old male returns to the ER seeking routine dialysis�had recent admission in [facility], does not have outpatient dialysis set up and came to the ER seeking dialysis while awaiting coordination of outpatient dialysis. Case management did see
him yesterday and is working on coordinating this. I did discuss with case management today they will continue to coordinate outpatient dialysis and update as things develop. Discussed with nephrology to coordinate dialysis today. Can straight
stick for chemistry. Reassess after the above.
Patient was dialyzed here in the ER. Feeling well after dialysis. Discussed with nephrology and case management; unfortunately lead case manager was unable to obtain successful placement for outpatient dialysis. I spoke with the patient and I offered
him admission once again until we can sort out his outpatient dialysis situation. He declined he is requesting to be discharged at this point. I advised him we will contact him if we can arrange for outpatient dialysis but otherwise he will need
to return in 48 hours for his next dialysis session.
Chronic conditions affecting care:
ESRD
*Pulse Oximetry
Patient hypoxic: no
*Critical Care Note
Total Time (30-74mins, 75-104mins- exclusive of procedures): Not Applicable
Data Reviewed
Review of Other/Old Records Reveals: Labs and Records
Source: patient and records
Patient Management
Discussion with other providers: Reporting Lead (Discussed with nephrology)
ED Attending Note
-
Portions of this chart may have been created with voice recognition software.� Occasional wrong word or��sound alike� substitutions may have occurred due to the inherent limitations of voice recognition software.
Discharge Plan
Departure
Patient Disposition: Home (Routine Discharge)
Date of Disposition: 11/26/24
Time of Disposition: 17:12
Patient with high blood pressure during this ER visit?: No
Discharge Problem:
ESRD needing dialysis
Prescriptions:
No Action
clonidine HCl 0.1 mg Tablet
0.1 mg PO BID Qty: 60 0RF
sulfamethoxazole-trimethoprim 800-160 mg Tablet
2 tab PO BID Qty: 6 0RF
docusate sodium 100 mg Capsule
100 mg PO BID Qty: 60 0RF
tizanidine 2 mg Tablet
2 mg PO Q4HPRN PRN (Reason: withdrawal symptoms) Qty: 10 0RF
Methadone 70 mg tablet
70 mg PO DAILY Qty: 5 0RF
Patient Comments:
10/24/2023, patient uses [facility] in [place], [place]
phone: [phone]
hours: M-F: 0600 - 1430; Sa and Sun.: 0700 - 1000
10/24/2023, received verbal confirmation from [facility] concerning patient's Methadone dose and frequency.
Referrals:
Anshu Rose DO [Family Provider] -
Interventions
Interventions:
*Risk Screen - Suicide Last Done: 11/26/24 08:52
*General Assessment Last Done: 11/26/24 08:52
*Neglect/Abuse Screening Last Done: 11/26/24 08:52
Discharge Date and Time
Print Language: GERMAN
--- NOTE | 2024-11-26 09:38 | CM ---
Addendum entered by Stacie Coelho RN 11/26/24 18:31:
Plan for patient to be discharged to home. Remy from [facility] stated that patient has been denied by all local facilities. CM will continue to look for HD placement.
Addendum entered by Stacie Coelho RN 11/26/24 13:25:
CM left message for Ivett at [facility] [phone]. [phone] to request assistance with HD placement.
Addendum entered by Stacie Coelho RN 11/26/24 12:54:
CM was updated by Remy from [facility]. Patient has been denied by [facility] due to difficulties with patient's behavior. As per Remy, they are trying to find another site for patient.
Addendum entered by Stacie Coelho RN 11/26/24 11:48:
CM requested update from Remy at [facility]. No confirmation at this time.
Addendum entered by Stacie Coelho RN 11/26/24 09:42:
CM spoke with patient. Patient stated that he understands he may have to go to the [facility] site. He stated that he would prefer a closer site but understands the challenges involved. He is agreeable to the [place] site if possible.
Original Note:
LEXI spoke with Remy from [facility] to confirm HD plan. Remy is working on an [facility] site for patient. CM will await updated. LEXI spoke with ED physician.
--- NOTE | 2024-11-26 10:23 | W.CON.NEPH ---
Consultation
-
Date/Time Consultation Requested: 11/26/24909
Date/Time Consultation Performed: 11/26/2435
Requesting Provider: Juancho Whittaker
Performing Provider: Patricia Lantigua
Reason for Consultation: ZEINAB on HD
Medical History
-
Chief Complaint: need HD
History of Present Illness:
34-year-old male with h/o drug abuse for several years with heroin, cocaine who was found down with OD for 1-2days prior to admitting to [facility] 2weeks ago, and noted [place]had[place], anuric ZEINAB started on HD> He also treated for FLU with Tamiflu. He
noted incidental adrenal nodule which needs f/u out pt, started on Nifedipine, clonidine for HTN and Methadone for chr drug abuse. He reports had hard time getting to HD unit and was discharged to home with pending unit placement, he lives in
[facility] [address]. He now returns to ER for needing HD, last HD was 11/23. Cr on that day pre HD was 4.8. HE reports urinating more lately, cr yesterday was at 3.9. Has no other complaints. HIs UE skin is scarred in multiple areas from IVDA. He was here
last night for HD but did not want to get admitted and came back today for HD. No fever noted.
Past Medical History
HTN
ZEINAB on HD
Adrenal nodule
IVDA
Social History
Tobacco: Non-Smoker
Alcohol: Occasional
Drug: Cocaine and IVDA
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
Family History
no CKD
Family History: Not Pertinent
Allergies / Home Medications
Allergy/AdvReac Type Severity Reaction Status Date / Time
amoxicillin [Amoxicillin] Allergy Hives Verified 11/26/24 08:57
Penicillins Allergy Hives Verified 11/26/24 08:57
�Medication �Instructions �Recorded �Confirmed �Type
Methadone 70 mg PO DAILY Mental 01/25/24 Rx
Health/Anxiety #5 tabs
clonidine HCl 0.1 mg tablet 0.1 mg PO BID #60 tabs 01/25/24 Rx
docusate sodium 100 mg capsule 100 mg PO BID #60 caps 01/25/24 Rx
sulfamethoxazole 800 2 tab PO BID #6 tabs 01/25/24 Rx
mg-trimethoprim 160 mg tablet
tizanidine 2 mg tablet 2 mg PO Q4HPRN PRN withdrawal 01/25/24 Rx
symptoms #10 tabs
Review of Systems
-
All complete 12 point ROS have been inquired and found negative other than stated in HPI
All other systems: Negative unless noted
Physical Exam
Vital Signs
Vital Signs
Temp Pulse Resp BP Pulse Ox
97.9 F 88 20 145/97 99
11/26/24 08:52 11/26/24 08:52 11/26/24 08:52 11/26/24 08:52 11/26/24 08:52
Lab Results
WBC Cancelled 11/26/24 08:58
RBC Cancelled 11/26/24 08:58
Hgb Cancelled 11/26/24 08:58
Hct Cancelled 11/26/24 08:58
Plt Count Cancelled 11/26/24 08:58
eGFR Cancelled 11/26/24 08:58
labs noted from 11/25/24
Physical Exam
General: Awake, Alert, Oriented, AOx3 and No Distress
HEENT: EOMI, Anicteric and Neck Supple
Respiratory: Clear, Normal Excursion and Nonlabored Respirations
Cardiac: S1/S2 and Regular Rate/Rhythm
Breast: Deferred by me
Abdomen: Soft, Nontender and Nondistended
Musculoskeletal: No Cyanosis and No Edema
Skin: No Rash and Other (multiple skin scarring areas in UEs)
Neuro: Nonfocal/Grossly Intact
Psych: Mood/afflect pleasant and Appropriate
Vascular Access: CVC
Data Reviewed
-
Labs: Labs Reviewed by me and Discussed with Patient
Assessment/Plan
-
IMP:
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
h/io Rhabdomyolysis
IVDA
HTN
Incidental adrenal nodule
Plan:
P/w need of HD, no HD unit currently
will arrange HD today
pt unlikely want to be admitted
CM to work on HD unit placement
await today cr, if improving suspect renal recovery
cotn home BP meds after HD
avoid nephrotoxins
d/w pt and ER
[2024-11-26 10:40] LABS: ALT (SGPT) 25 U/L (0-50); AST (SGOT) 34 U/L (17-59); Albumin 4.7 g/dl (3.5-5.0); Alkaline Phosphatase 61 U/L (38-126); Blood Urea Nitrogen 52 mg/dl (9-20); Carbon Dioxide 22 mmol/L (22-30); Chloride 103 mmol/L (98-107); Glucose 96 mg/dl (70-99); Potassium 4.2 mmol/L (3.5-5.1); Sodium 140 mmol/L (135-145); Total Bilirubin 0.3 mg/dl (0.2-1.3); Total Protein 7.9 g/dl (6.3-8.2); eGFR 23.03
[2024-11-26] MEDS: HEPARIN 500 UNITS IV ×2 (13:59→14:00)
[2024-11-26] MEDS: RETACRIT 4000 UNITS IV (15:18)
--- NOTE | 2024-11-26 16:28 | W.PN.NEPH.HD ---
Assessment
-
pt seen during HD
vitals stable
cr is better likely has renal recovery
likely next HD at out pt unit and needs f/u of pre HD cr
CVC functions fine
Progress Note - Hemodialysis
-
Date of Service: November 26, 2024
Duration: 30 minutes and 3 hours
Potassium Bath: 3
Calcium Bath: 2.5
Opti-Dialyzer: 160
Ultrafiltration: Other (1kg)
Blood Flow: 400
Dialysate Flow: 600
Heparin: yesx2
EPO: 4000
[2024-11-26] MEDS: HEPARIN 3600 UNITS INTRACATH (16:43)
[2024-11-26 17:35] VITALS: BP 113/80
[2024-11-26 18:23] LABS: Hepatitis B Surface Antigen Negative (Negative)
== END 2024-11-26 17:36 | disposition home or self-care (01) ==
LOC: EMR 08:32
PROVIDERS: CONSULT PHYSICIAN Internal Medicine; EMERGENCY PHYSICIAN Emergency Medicine; FAMILY PHYSICIAN Family Medicine
DX: I12.0 Hypertensive chronic kidney disease with stage 5 chronic kidney disease or end stage renal disease (principal); N18.6 End stage renal disease; Z99.2 Dependence on renal dialysis; J45.909 Unspecified asthma, uncomplicated; F14.10 Cocaine abuse, uncomplicated; Z79.899 Other long term (current) drug therapy
CPT/HCPCS: 96374; 99285; 80053; 87340; G0257; P9047; Q5106

== ENCOUNTER 2024-11-29 10:07 | Emergency (ER) | payer MEDICARE, SELFPAY ==
[2024-11-29 10:12] VITALS: BP 130/100
[2024-11-29 10:37] LABS: % Basophils 1.2 % (0-2); % Eosinophils 4.6 % (0-6); % Immature Granulocytes 0.3 % (0-0.5); % Monocytes 8.5 % (1.7-9.3); % Neutrophils 53.4 % (42.2-75.2); Absolute Basophils 0.1 10^3/uL (0-0.2); Absolute Eosinophils 0.3 10^3/uL (0-0.7); Absolute Lymphocytes 2.2 10^3/uL (1.2-3.4); Absolute Monocytes 0.6 10^3/uL (0.1-0.6); Absolute Neutrophils 3.6 10^3/uL (1.4-6.5); Hematocrit 31.2 % (39.0-52.0); Hemoglobin 10.5 g/dL (13.0-18.0); Mean Corp Hgb Conc. 33.7 g/dL (33.0-37.0); Mean Corpuscular Hgb 25.6 pg (27.0-31.0); Mean Corpuscular Volume 76.1 fL (80.0-94.0); Mean Platelet Volume 9.7 fL (7.4-10.4); Nucleated Red Blood Cells % 0 % (-); Platelet Count 331 10^3/uL (130-400); Red Cell Dist. Width 16.8 % (11.5-14.5); White Blood Cell Count 6.8 10^3/uL (4.8-10.8)
[2024-11-29 10:59] LABS: ALT (SGPT) 24 U/L (0-50); AST (SGOT) 29 U/L (17-59); Alkaline Phosphatase 64 U/L (38-126); Blood Urea Nitrogen 35 mg/dl (9-20); Calcium 9.8 mg/dl (8.4-10.2); Carbon Dioxide 23 mmol/L (22-30); Chloride 104 mmol/L (98-107); Glucose 97 mg/dl (70-99); Potassium 4.7 mmol/L (3.5-5.1); Sodium 141 mmol/L (135-145); Total Bilirubin 0.5 mg/dl (0.2-1.3); Total Protein 8.6 g/dl (6.3-8.2); eGFR 34.99
--- NOTE | 2024-11-29 11:15 | CM ---
CM was updated by RN that patient has arrived for HD. As per Max from [facility] TIGER MACHINE OPERATOR, from [facility] is currently trying to place patient with [facility]. CM will continue to follow.
--- NOTE | 2024-11-29 11:28 | ED.GENMED ---
History of Present Illness
General
Chief Complaint: Social Service Referral
Source: patient and records
Time Seen by Provider: 11/29/24 11:17
History of Present Illness
History of Present Illness:
34 year old male with PMH of newly diagnosed ESRD requiring dialysis 2/2 complications from a drug overdose leading to rhabdomyolysis causing his kidney injury. Patient was admitted at [facility] for an extended stay and subsequently
discharged home however patient was not provided with an outpatient dialysis institution and instead has come to this ER 3 separate times for his dialysis while they are working on getting him a more permanent dialysis center. Patient is without
complaints at this time. Last dialysis session on November 26.
Past History
Past History
ED Past Medical History: Asthma, Psychiatric (Bipolar disorder, Substance abuse) and Other (MRSA bacteremia, IV opioid use, IV cocaine use)
ED Past Surgical History: None
Social History
Tobacco: Non-smoker
Alcohol: Occasional
Drug: Narcotics and Other
Personal: Single
Living: with family
Employment: Employed
Family History
Family History: Other (No significant)
Review of Systems
Review of Systems
All Other Systems: ROS reviewed and negative except as documented in HPI and ROS
Phy Exam
Physical Exam
Physical Exam:
GENERAL: Alert , in no apparent distress
EYE: conjunctiva clear
Head: Normocephalic atraumatic
NECK: Supple,
ENT: mmm.
LUNGS: no acute respiratory distress
NEUROLOGICAL: Alert and oriented
SKIN: Warm and dry, skin intact.
MUSCULOSKELETAL: well perfused.
PSYCH: Normal and appropriate interaction.
Scores
Heart Failure Risk
Heart Failure Risk Score: Not Applicable
Heart Score for Chest Pain Patients
STEMI patient?: Not applicable
Withdrawal Assessment of Alcohol
Withdrawal Assessment Completed?: Not applicable
Course
Orders/Labs/Results
Orders:
Orders
11/29/24 10:24
Complete Blood Count/With Diff Urgent
Comprehensive Metabolic Panel Urgent
Abnormal Lab Results
11/29/24
10:24
RBC 4.10 L 10^6/uL
(4.70-6.10)
Hgb 10.5 L g/dL
(13.0-18.0)
Hct 31.2 L %
(39.0-52.0)
MCV 76.1 L fL
(80.0-94.0)
MCH 25.6 L pg
(27.0-31.0)
RDW 16.8 H %
(11.5-14.5)
BUN 35 H mg/dl
(9-20)
Creatinine 2.4 H mg/dL
(0.7-1.3)
Total Protein 8.6 H g/dl
(6.3-8.2)
11/29/24 10:24
11/29/24 10:24
Vital Signs
Initial and Last Documented VS:
Initial Vital Signs
Temp Pulse Resp BP Pulse Ox
98.2 F 109 18 130/100 98
11/29/24 10:12 11/29/24 10:12 11/29/24 10:12 11/29/24 10:12 11/29/24 10:12
Last Documented Vital Signs
Temp Pulse Resp BP Pulse Ox
98.2 F 109 18 130/100 98
11/29/24 10:12 11/29/24 10:12 11/29/24 10:12 11/29/24 10:12 11/29/24 10:12
MDM/Problems Addressed
Differential Diagnosis Includes:
ESRD, electrolyte derangement, no signs of infection
MDM/Problems Addressed:
34-year-old male presenting to the ER for dialysis. Patient currently in the process of obtaining permanent outpatient dialysis facility. Last full dialysis session on November 26. Patient is without complaint today. Labs ordered in triage show
mild chronic kidney disease unremarkable electrolytes. I notified nephrology who states no indication for emergent dialysis. Patient can be admitted for dialysis tomorrow or present back to the emergency department tomorrow for dialysis. Patient
states he does not wish to stay in the hospital and will return to the ER tomorrow. Patient aware of return precautions to come back to the emergency department sooner. Stable for discharge.
Chronic conditions affecting care: Kidney disease
Acute Exacerbation and/or Progression of Chronic Illness: Kidney disease
*Pulse Oximetry
Patient hypoxic: no
*Critical Care Note
Total Time (30-74mins, 75-104mins- exclusive of procedures): Not Applicable
Data Reviewed
Review of Other/Old Records Reveals: Labs and Records
Patient Management
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
ED Attending Note
-
Portions of this chart may have been created with voice recognition software.� Occasional wrong word or��sound alike� substitutions may have occurred due to the inherent limitations of voice recognition software.
Discharge Plan
Departure
Patient Disposition: Home (Routine Discharge)
Date of Disposition: 11/29/24
Time of Disposition: 11:28
Patient with high blood pressure during this ER visit?: Yes
Discharge Problem:
End-stage renal disease needing dialysis
Prescriptions:
No Action
clonidine HCl 0.1 mg Tablet
0.1 mg PO BID Qty: 60 0RF
sulfamethoxazole-trimethoprim 800-160 mg Tablet
2 tab PO BID Qty: 6 0RF
docusate sodium 100 mg Capsule
100 mg PO BID Qty: 60 0RF
tizanidine 2 mg Tablet
2 mg PO Q4HPRN PRN (Reason: withdrawal symptoms) Qty: 10 0RF
Methadone 70 mg tablet
70 mg PO DAILY Qty: 5 0RF
Patient Comments:
10/24/2023, patient uses [facility] in [place], [place]
phone: [phone]
hours: M-F: 0600 - 1430; Sa and Sun.: 0700 - 1000
10/24/2023, received verbal confirmation from [facility]. concerning patient's Methadone dose and frequency.
Referrals:
Anshu Rose DO [Family Provider] -
Interventions
Interventions:
*Risk Screen - Suicide Last Done: 11/29/24 10:12
*Neglect/Abuse Screening Last Done: 11/29/24 10:12
*Nursing Disposition Last Done: 11/29/24 11:40
ED-Psychological Assessment Last Done: 11/29/24 11:40
Discharge Date and Time
Discharge Date/Time: 11/29/24 11:40
Print Language: MONGOLIAN
--- NOTE | 2024-11-29 14:02 | CM ---
LEXI spoke with Rossi at [facility] regarding her HD placement efforts. Rossi stated that she is currently working with Susan to finds placement. She is requesting a Hep B Panel. LEXI requested lab from [facility].
Rossi ([facility] PUBLIC INFORMATION SPECIALIST for HD)
FAx
[phone]
== END 2024-11-29 11:40 | disposition home or self-care (01) ==
LOC: EMR 10:07
PROVIDERS: Student in an Organized Health Care Education/Training Program; EMERGENCY PHYSICIAN Emergency Medicine; FAMILY PHYSICIAN Family Medicine
DX: N18.6 End stage renal disease (principal); Z99.2 Dependence on renal dialysis; J45.909 Unspecified asthma, uncomplicated; F31.9 Bipolar disorder, unspecified; F19.10 Other psychoactive substance abuse, uncomplicated
CPT/HCPCS: 99283; 80053; 85025

== ENCOUNTER 2024-11-30 10:31 | Emergency (ER) | payer MEDICARE, SELFPAY ==
[2024-11-30 10:33] VITALS: BP 135/97
--- NOTE | 2024-11-30 10:39 | ED.GENMED ---
ED Provider Triage
<Brook Ospina PA-C - Last Filed: 11/30/24 10:42>
-
Patient seen by provider in Triage?: Seen in Triage
Attestation: A medical screening examination has been initiated by a qualified medical provider. Based on the assessment performed at this time, it has been determined that an emergent medical condition may exist and the patient has been informed
that further medical evaluation and possible additional diagnostic testing may be needed.
HPI: 34yoM here requesting dialysis. Admitted at [facility] at end of October x 2 weeks for renal failure and rhabdo. Initiated on dialysis at that time. Discharged 1 week ago. Outpatient dialysis has not been established. Has been dialyzed once in
the past week. Seen here yesterday and labs reassuring so was sent home and told to come back to the ED today. States he is urinating normally. C/o fatigue which is improving.
GENERAL: Alert , in no apparent distress
EYE: No visual abnormalities.
NECK: Trachea midline
ENT: No visible abnormalities.
LUNGS: No acute respiratory distress
NEUROLOGICAL: Alert and oriented
SKIN: Skin intact. No visible changes.
MUSCULOSKELETAL: Moving extremities normally
PSYCH: Normal and appropriate interaction.
This is a medical evaluation conducted in person to initiate diagnostic evaluation and provide initial therapeutics. Please see further documentation by the treating clinician.
CBC and CMP ordered.
History of Present Illness
<Brook Ospina PA-C - Last Filed: 11/30/24 10:42>
General
Chief Complaint: Social Service Referral
Time Seen by Provider: 11/30/24 10:42
<Karri Doll PA-C - Last Filed: 11/30/24 13:30>
General
Source: patient
History of Present Illness
History of Present Illness:
34-year-old male presenting back to the emergency department for evaluation with plan for dialysis today after he was seen here in the emergency department yesterday. Patient was recently admitted at [facility] secondary to a drug overdose
leading to rhabdomyolysis and acute kidney injury requiring dialysis. Patient unfortunately was not able to obtain an outpatient dialysis center and was instructed to come to local hospital for dialysis until he had outpatient dialysis arranged.
Patient seen yesterday and labs were unremarkable, declined admission so told to come back to the ER today for potential dialysis. Patient is without any complaints at this time.
Past History
<Brook Ospina PA-C - Last Filed: 11/30/24 10:42>
Past History
ED Past Medical History: Asthma, Psychiatric (Bipolar disorder, Substance abuse) and Other (MRSA bacteremia, IV opioid use, IV cocaine use)
ED Past Surgical History: None
Social History
Tobacco: Non-smoker
Alcohol: Occasional
Drug: Narcotics and Other
Personal: Single
Living: with family
Employment: Employed
Family History
Family History: Other (No significant)
Review of Systems
<Karri Doll PA-C - Last Filed: 11/30/24 13:30>
Review of Systems
All Other Systems: ROS reviewed and negative except as documented in HPI and ROS
Phy Exam
<Karri Doll PA-C - Last Filed: 11/30/24 13:30>
Physical Exam
Physical Exam:
GENERAL: Alert , in no apparent distress
EYE: conjunctiva clear
Head: Normocephalic atraumatic
NECK: Supple,
ENT: mmm.
LUNGS: no acute respiratory distress
NEUROLOGICAL: Alert and oriented
SKIN: Warm and dry, skin intact.
MUSCULOSKELETAL: well perfused.
PSYCH: Normal and appropriate interaction.
Scores
<Karri Doll PA-C - Last Filed: 11/30/24 13:30>
Heart Failure Risk
Heart Failure Risk Score: Not Applicable
Heart Score for Chest Pain Patients
STEMI patient?: Not applicable
Withdrawal Assessment of Alcohol
Withdrawal Assessment Completed?: Not applicable
Course
Juan Manuellt;Brook Ospina PA-C - Last Filed: 11/30/24 10:42>
Orders/Labs/Results
Orders:
Orders
11/30/24 10:47
Complete Blood Count/With Diff Urgent
Comprehensive Metabolic Panel Urgent
Hepatitis B Core Ab, IgM Urgent
Hepatitis B Core Ab, Total Urgent
Hepatitis B Surface Antibody Urgent
Hepatitis B Surface Antigen Urgent
Abnormal Lab Results
11/30/24
10:47
RBC 4.24 L 10^6/uL
(4.70-6.10)
Hgb 10.6 L g/dL
(13.0-18.0)
Hct 32.3 L %
(39.0-52.0)
MCV 76.2 L fL
(80.0-94.0)
MCH 25.0 L pg
(27.0-31.0)
MCHC 32.8 L g/dL
(33.0-37.0)
RDW 17.0 H %
(11.5-14.5)
Carbon Dioxide 21 L mmol/L
(22-30)
BUN 33 H mg/dl
(9-20)
Creatinine 2.2 H mg/dL
(0.7-1.3)
Total Protein 8.7 H g/dl
(6.3-8.2)
11/30/24 10:47
11/30/24 10:47
Vital Signs
Initial and Last Documented VS:
Initial Vital Signs
Temp Pulse Resp BP Pulse Ox
98.0 F 98 18 135/97 99
11/30/24 10:33 11/30/24 10:33 11/30/24 10:33 11/30/24 10:33 11/30/24 10:33
Last Documented Vital Signs
Temp Pulse Resp BP Pulse Ox
98.0 F 98 18 135/97 99
11/30/24 10:33 11/30/24 10:33 11/30/24 10:33 11/30/24 10:33 11/30/24 10:33
<Karri Doll PA-C - Last Filed: 11/30/24 13:30>
Orders/Labs/Results
Orders:
Orders
11/30/24 10:47
Complete Blood Count/With Diff Urgent
Comprehensive Metabolic Panel Urgent
Hepatitis B Core Ab, IgM Urgent
Hepatitis B Core Ab, Total Urgent
Hepatitis B Surface Antibody Urgent
Hepatitis B Surface Antigen Urgent
Abnormal Lab Results
11/30/24
10:47
RBC 4.24 L 10^6/uL
(4.70-6.10)
Hgb 10.6 L g/dL
(13.0-18.0)
Hct 32.3 L %
(39.0-52.0)
MCV 76.2 L fL
(80.0-94.0)
MCH 25.0 L pg
(27.0-31.0)
MCHC 32.8 L g/dL
(33.0-37.0)
RDW 17.0 H %
(11.5-14.5)
Carbon Dioxide 21 L mmol/L
(22-30)
BUN 33 H mg/dl
(9-20)
Creatinine 2.2 H mg/dL
(0.7-1.3)
Total Protein 8.7 H g/dl
(6.3-8.2)
11/30/24 10:47
11/30/24 10:47
Vital Signs
Initial and Last Documented VS:
Initial Vital Signs
Temp Pulse Resp BP Pulse Ox
98.0 F 98 18 135/97 99
11/30/24 10:33 11/30/24 10:33 11/30/24 10:33 11/30/24 10:33 11/30/24 10:33
Last Documented Vital Signs
Temp Pulse Resp BP Pulse Ox
98.0 F 98 18 135/97 99
11/30/24 10:33 11/30/24 10:33 11/30/24 10:33 11/30/24 10:33 11/30/24 10:33
<Karri Doll PA-C - Last Filed: 11/30/24 13:30>
MDM/Problems Addressed
MDM/Problems Addressed:
34-year-old male presenting the ER for dialysis. On his arrival, nephrology was notified and they will help arrange for patient's dialysis session. Based off conversation with case management yesterday a hepatitis B panel was ordered as this would
be needed for patient's outpatient treatment. Labs initiated.
<Karri Doll PA-C - Last Filed: 11/30/24 13:30>
*Pulse Oximetry
Patient hypoxic: no
*Critical Care Note
Total Time (30-74mins, 75-104mins- exclusive of procedures): Not Applicable
<Karri Doll PA-C - Last Filed: 11/30/24 13:30>
Patient Management
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
Escalation/DeEscalation of care consider admission/obs:
Patient's labs show a continuously improving creatinine and GFR. Due to the labs nephrology does not recommend patient obtaining dialysis and due to his significant improvements recommend the patient come back to the ER on Friday for repeat labs
and if continuing to improve can have his temporary dialysis catheter removed as he will no longer need dialysis. Patient was advised on this plan and is in agreement. He will return to the ER on Friday for repeat BMP.
ED Attending Note
<Brook Ospina PA-C - Last Filed: 11/30/24 10:42>
-
Portions of this chart may have been created with voice recognition software.� Occasional wrong word or��sound alike� substitutions may have occurred due to the inherent limitations of voice recognition software.
Discharge Plan
Departure
Patient Disposition: Home (Routine Discharge)
Date of Disposition: 11/30/24
Time of Disposition: 12:10
Patient with high blood pressure during this ER visit?: Yes
Discharge Problem:
Acute kidney injury
Prescriptions:
No Action
clonidine HCl 0.1 mg Tablet
0.1 mg PO BID Qty: 60 0RF
sulfamethoxazole-trimethoprim 800-160 mg Tablet
2 tab PO BID Qty: 6 0RF
docusate sodium 100 mg Capsule
100 mg PO BID Qty: 60 0RF
tizanidine 2 mg Tablet
2 mg PO Q4HPRN PRN (Reason: withdrawal symptoms) Qty: 10 0RF
Methadone 70 mg tablet
70 mg PO DAILY Qty: 5 0RF
Patient Comments:
10/24/2023, patient uses [facility] in [place], [place]
phone: [phone]
hours: M-F: 0600 - 1430; Sa and Sun.: 0700 - 1000
10/24/2023, received verbal confirmation from [facility]. concerning patient's Methadone dose and frequency.
Activity Restrictions/Additional Instructions:
Please return to the emergency department on December 03 for repeat blood work. You may need to have your dialysis catheter removed this day as well.
Interventions
Interventions:
*Risk Screen - Suicide Last Done: 11/30/24 10:33
*General Assessment Last Done: 11/30/24 10:33
*Neglect/Abuse Screening Last Done: 11/30/24 10:33
*ED COVID-19 Vaccine History Last Done: 11/30/24 10:33
*Nursing Disposition Last Done: 11/30/24 12:44
ED-Psychological Assessment Last Done: 11/30/24 12:44
Discharge Date and Time
Discharge Date/Time: 11/30/24 12:45
Print Language: KISWAHILI
[2024-11-30 10:58] LABS: % Basophils 0.8 % (0-2); % Eosinophils 3.6 % (0-6); % Immature Granulocytes 0.5 % (0-0.5); % Lymphocytes 30.3 % (20.5-51.1); % Monocytes 8.6 % (1.7-9.3); % Neutrophils 56.2 % (42.2-75.2); Absolute Basophils 0.1 10^3/uL (0-0.2); Absolute Eosinophils 0.2 10^3/uL (0-0.7); Absolute Monocytes 0.6 10^3/uL (0.1-0.6); Absolute Neutrophils 3.7 10^3/uL (1.4-6.5); Hematocrit 32.3 % (39.0-52.0); Hemoglobin 10.6 g/dL (13.0-18.0); Mean Corp Hgb Conc. 32.8 g/dL (33.0-37.0); Mean Corpuscular Volume 76.2 fL (80.0-94.0); Mean Platelet Volume 9.7 fL (7.4-10.4); Nucleated Red Blood Cells % 0 % (-); Platelet Count 332 10^3/uL (130-400); Red Blood Cell Count 4.24 10^6/uL (4.70-6.10); White Blood Cell Count 6.6 10^3/uL (4.8-10.8)
[2024-11-30 11:12] LABS: ALT (SGPT) 26 U/L (0-50); AST (SGOT) 30 U/L (17-59); Alkaline Phosphatase 64 U/L (38-126); Blood Urea Nitrogen 33 mg/dl (9-20); Calcium 9.5 mg/dl (8.4-10.2); Carbon Dioxide 21 mmol/L (22-30); Chloride 107 mmol/L (98-107); Glucose 92 mg/dl (70-99); Potassium 4.4 mmol/L (3.5-5.1); Sodium 142 mmol/L (135-145); Total Bilirubin 0.4 mg/dl (0.2-1.3); Total Protein 8.7 g/dl (6.3-8.2); eGFR 38.84
[2024-11-30 12:00] LABS: Hepatitis B Surface Antigen Negative (Negative)
--- NOTE | 2024-11-30 12:06 | CM ---
CM was advised that patient's Hep B panel was drawn and is pending results.
[2024-11-30 12:18] LABS: Hepatitis B Core Ab, Total Negative (Negative); Hepatitis B Surface Antibody Positive
--- NOTE | 2024-11-30 12:18 | W.CON.NEPH ---
Consultation
-
Date/Time Consultation Requested: 11/30/2024 11:30 AM
Date/Time Consultation Performed: 11/30/2024 1145
Requesting Provider: Dr. Jimenez
Performing Provider: Dr. Villaseñor
Reason for Consultation: Acute renal failure
Medical History
-
Chief Complaint: Acute renal failure
History of Present Illness:
34-year-old male with h/o drug abuse for several years with heroin, cocaine who was found down with OD for 1-2days prior to admitting to [facility] 3 weeks ago, and noted Rhadbo, anuric ZEINAB started on HD> He also treated for FLU with Tamiflu. He
noted incidental adrenal nodule which needs f/u out pt, started on Nifedipine, clonidine for HTN and Methadone for chronic drug abuse. He reports had hard time getting to HD unit and was discharged to home with pending unit placement, he lives in
[place]. He now returns to ER for needing HD, last HD was 11/26/24. Cr on that day pre HD was 3.4. A creatinine obtained yesterday at 11/29/2024 was down to 2.4 and as of today it is 2.2. HE reports urinating more lately, cr yesterday was at 3.9.
Has no other complaints. Hss UE skin is scarred in multiple areas from IVDA. We were consulted for his acute kidney injury with dialysis requirement.
Past Medical History
HTN
ZEINAB on HD in setting of rhabdomyolysis
Adrenal nodule
IVDA
Social History
Tobacco: Non-Smoker
Alcohol: Occasional
Drug: Cocaine and IVDA
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
Family History
no CKD
Family History: Not Pertinent
Allergies / Home Medications
Allergy/AdvReac Type Severity Reaction Status Date / Time
amoxicillin [Amoxicillin] Allergy Hives Verified 11/30/24 10:36
Penicillins Allergy Hives Verified 11/30/24 10:36
�Medication �Instructions �Recorded �Confirmed �Type
Methadone 70 mg PO DAILY Mental 01/25/24 Rx
Health/Anxiety #5 tabs
clonidine HCl 0.1 mg tablet 0.1 mg PO BID #60 tabs 01/25/24 Rx
docusate sodium 100 mg capsule 100 mg PO BID #60 caps 01/25/24 Rx
sulfamethoxazole 800 2 tab PO BID #6 tabs 01/25/24 Rx
mg-trimethoprim 160 mg tablet
tizanidine 2 mg tablet 2 mg PO Q4HPRN PRN withdrawal 01/25/24 Rx
symptoms #10 tabs
Review of Systems
-
History Source: Patient
All other systems: Negative unless noted
Physical Exam
Vital Signs
Vital Signs
Temp Pulse Resp BP Pulse Ox
98.0 F 98 18 135/97 99
11/30/24 10:33 11/30/24 10:33 11/30/24 10:33 11/30/24 10:33 11/30/24 10:33
Lab Results
11/30/24 10:47
11/30/24 10:47
WBC 6.6 10^3/uL (4.8-10.8) 11/30/24 10:47
RBC 4.24 10^6/uL (4.70-6.10) L 11/30/24 10:47
Hgb 10.6 g/dL (13.0-18.0) L 11/30/24 10:47
Hct 32.3 % (39.0-52.0) L 11/30/24 10:47
Plt Count 332 10^3/uL (130-400) 11/30/24 10:47
Sodium 142 mmol/L (135-145) 11/30/24 10:47
Potassium 4.4 mmol/L (3.5-5.1) 11/30/24 10:47
Chloride 107 mmol/L (98-107) 11/30/24 10:47
Carbon Dioxide 21 mmol/L (22-30) L 11/30/24 10:47
BUN 33 mg/dl (9-20) H 11/30/24 10:47
Creatinine 2.2 mg/dL (0.7-1.3) H 11/30/24 10:47
eGFR 38.84 11/30/24 10:47
Glucose 92 mg/dl (70-99) 11/30/24 10:47
Calcium 9.5 mg/dl (8.4-10.2) 11/30/24 10:47
Albumin 5.0 g/dl (3.5-5.0) 11/30/24 10:47
Physical Exam
General: Awake, Alert, Oriented, AOx3 and No Distress
HEENT: EOMI, Anicteric and Neck Supple
Respiratory: Clear, Normal Excursion and Nonlabored Respirations
Cardiac: S1/S2 and Regular Rate/Rhythm
Breast: Deferred by me
Abdomen: Soft, Nontender and Nondistended
Musculoskeletal: No Cyanosis and No Edema
Skin: No Rash and Other (multiple skin scarring areas in UEs)
Neuro: Nonfocal/Grossly Intact
Psych: Mood/afflect pleasant and Appropriate
Vascular Access: CVC
Data Reviewed
-
Labs: Labs Reviewed by me (BMP, CBC)
Old Records: Reviewed (Previous nephrology consult from date 10/25/25 and labs reviewed from 11/25/2024 11/29/2024 )
Assessment/Plan
-
IMP:
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
h/io Rhabdomyolysis
IVDA
HTN
Incidental adrenal nodule
Plan:
Creatinine is now down to 2.2 following last dialysis from November 26, 2023
His creatinine yesterday was 2.4 but we did not dialyze him yesterday
I believe he is safe to return home today without further dialysis
He will come back to the emergency room on 12/03/2024 for recheck of BMP and if his creatinine continues to decrease his tunneled catheter will be removed
Plan discussed with emergency room team
[2024-11-30 12:30] LABS: Hepatitis B Core Ab, IgM Negative (Negative)
== END 2024-11-30 12:45 | disposition home or self-care (01) ==
LOC: EMR 10:31
PROVIDERS: Physician Assistant; Physician Assistant Medical; EMERGENCY PHYSICIAN Emergency Medicine; FAMILY PHYSICIAN Family Medicine; OTHER PHYSICIAN Specialist
DX: N17.9 Acute kidney failure, unspecified (principal); M62.82 Rhabdomyolysis; I10 Essential (primary) hypertension; F19.10 Other psychoactive substance abuse, uncomplicated; Z99.2 Dependence on renal dialysis
CPT/HCPCS: 99283; 80053; 85025; 86704; 86705; 86706; 87340

== ENCOUNTER 2024-12-03 10:23 | Emergency (ER) | payer MEDICARE, MEDICAID, SELFPAY ==
[2024-12-03 10:37] VITALS: BP 151/99
[2024-12-03 11:02] LABS: % Basophils 0.7 % (0-2); % Eosinophils 3.6 % (0-6); % Immature Granulocytes 0.3 % (0-0.5); % Lymphocytes 29.2 % (20.5-51.1); % Monocytes 8.3 % (1.7-9.3); % Neutrophils 57.9 % (42.2-75.2); Absolute Basophils 0.1 10^3/uL (0-0.2); Absolute Eosinophils 0.3 10^3/uL (0-0.7); Absolute Lymphocytes 2.1 10^3/uL (1.2-3.4); Absolute Monocytes 0.6 10^3/uL (0.1-0.6); Absolute Neutrophils 4.1 10^3/uL (1.4-6.5); Hemoglobin 10.1 g/dL (13.0-18.0); Mean Corp Hgb Conc. 33.7 g/dL (33.0-37.0); Mean Corpuscular Hgb 25.7 pg (27.0-31.0); Mean Corpuscular Volume 76.3 fL (80.0-94.0); Mean Platelet Volume 9.4 fL (7.4-10.4); Nucleated Red Blood Cells % 0 % (-); Platelet Count 241 10^3/uL (130-400); Red Blood Cell Count 3.93 10^6/uL (4.70-6.10); Red Cell Dist. Width 17.5 % (11.5-14.5)
[2024-12-03 11:21] LABS: ALT (SGPT) 23 U/L (0-50); AST (SGOT) 30 U/L (17-59); Albumin 4.9 g/dl (3.5-5.0); Alkaline Phosphatase 61 U/L (38-126); Blood Urea Nitrogen 21 mg/dl (9-20); Calcium 9.4 mg/dl (8.4-10.2); Carbon Dioxide 20 mmol/L (22-30); Chloride 109 mmol/L (98-107); Glucose 103 mg/dl (70-99); Potassium 4.2 mmol/L (3.5-5.1); Sodium 144 mmol/L (135-145); Total Bilirubin 0.5 mg/dl (0.2-1.3); Total Protein 8.5 g/dl (6.3-8.2); eGFR 56.91
--- NOTE | 2024-12-03 12:30 | ED.GENMED ---
History of Present Illness
General
Chief Complaint: Abnormal Lab Value
Source: patient
Exam Limitations: none
Time Seen by Provider: 12/03/24 12:14
Nursing documentation reviewed up to this point in time: agreed with
Past History
Past History
ED Past Medical History: Asthma, Psychiatric (Bipolar disorder, Substance abuse) and Other (MRSA bacteremia, IV opioid use, IV cocaine use)
ED Past Surgical History: None
Social History
Tobacco: Non-smoker
Alcohol: Occasional
Drug: Narcotics and Other
Personal: Single
Living: with family
Employment: Employed
Family History
Family History: Other (No significant)
Course
Orders/Labs/Results
Orders:
Orders
12/03/24 10:56
Complete Blood Count/With Diff Urgent
12/03/24 10:57
Comprehensive Metabolic Panel Urgent
Abnormal Lab Results
12/03/24 12/03/24
10:56 10:57
RBC 3.93 L 10^6/uL
(4.70-6.10)
Hgb 10.1 L g/dL
(13.0-18.0)
Hct 30.0 L %
(39.0-52.0)
MCV 76.3 L fL
(80.0-94.0)
MCH 25.7 L pg
(27.0-31.0)
RDW 17.5 H %
(11.5-14.5)
Chloride 109 H mmol/L
(98-107)
Carbon Dioxide 20 L mmol/L
(22-30)
BUN 21 H mg/dl
(9-20)
Creatinine 1.6 H mg/dL
(0.7-1.3)
Glucose 103 H mg/dl
(70-99)
Total Protein 8.5 H g/dl
(6.3-8.2)
12/03/24 10:56
12/03/24 10:57
Vital Signs
Initial and Last Documented VS:
Initial Vital Signs
Temp Pulse Resp BP Pulse Ox
36.9 C 102 18 151/99 99
12/03/24 10:37 12/03/24 10:37 12/03/24 10:37 12/03/24 10:37 12/03/24 10:37
Last Documented Vital Signs
Temp Pulse Resp BP Pulse Ox
36.9 C 102 18 151/99 99
12/03/24 10:37 12/03/24 10:37 12/03/24 10:37 12/03/24 10:37 12/03/24 10:37
ED Attending Note
-
Portions of this chart may have been created with voice recognition software.� Occasional wrong word or��sound alike� substitutions may have occurred due to the inherent limitations of voice recognition software.
Discharge Plan
Departure
Prescriptions:
No Action
clonidine HCl 0.1 mg Tablet
0.1 mg PO BID Qty: 60 0RF
sulfamethoxazole-trimethoprim 800-160 mg Tablet
2 tab PO BID Qty: 6 0RF
docusate sodium 100 mg Capsule
100 mg PO BID Qty: 60 0RF
tizanidine 2 mg Tablet
2 mg PO Q4HPRN PRN (Reason: withdrawal symptoms) Qty: 10 0RF
Methadone 70 mg tablet
70 mg PO DAILY Qty: 5 0RF
Patient Comments:
10/24/2023, patient uses [facility] in [place], [place]
phone: [phone]
hours: M-F: 0600 - 1430; Sa and Sun.: 0700 - 1000
10/24/2023, received verbal confirmation from [facility] concerning patient's Methadone dose and frequency.
Interventions
Interventions:
*Risk Screen - Suicide Last Done: 12/03/24 10:37
*General Assessment Last Done: 12/03/24 10:37
*Neglect/Abuse Screening Last Done: 12/03/24 10:37
Discharge Date and Time
Print Language: BURKINAN
--- NOTE | 2024-12-03 13:04 | CM ---
CM received update from ED PA. Plan for patient's HD cath to be pulled today with plan for continued outpatient follow up of kidney function.
[2024-12-03 14:59] VITALS: BP 153/96
== END 2024-12-03 15:12 | disposition home or self-care (01) ==
LOC: EMR 10:23
PROVIDERS: CONSULT PHYSICIAN Radiology Vascular & Interventional Radiology; EMERGENCY PHYSICIAN Emergency Medicine; FAMILY PHYSICIAN Family Medicine
DX: R79.89 Other specified abnormal findings of blood chemistry (principal); J45.909 Unspecified asthma, uncomplicated; F31.9 Bipolar disorder, unspecified; F19.10 Other psychoactive substance abuse, uncomplicated; Z45.2 Encounter for adjustment and management of vascular access device
CPT/HCPCS: 99283; 36589; 80053; 85025